=== PATIENT | female | born 1955 | race Caucasian/White ===

== ENCOUNTER → 2023-10-10 14:20 | Outpatient (REF) | payer OTHER, SELFPAY | LOC: HWWDC 14:20 | PROVIDERS: ATTENDING PHYSICIAN Nurse Practitioner Adult Health | DX: Z12.31 Encounter for screening mammogram for malignant neoplasm of breast (principal) | CPT/HCPCS: 77063; 77067 ==

== ENCOUNTER → 2023-10-18 10:20 | Outpatient (REF) | payer OTHER, SELFPAY | LOC: WDC 10:20 | PROVIDERS: ATTENDING PHYSICIAN Nurse Practitioner Adult Health | DX: R92.8 Other abnormal and inconclusive findings on diagnostic imaging of breast (principal) | CPT/HCPCS: 76642 ==

== ENCOUNTER → 2023-11-06 10:23 | Outpatient (REF) | payer OTHER, SELFPAY | LOC: HWRAD 10:23 | PROVIDERS: ATTENDING PHYSICIAN Physician Assistant; FAMILY PHYSICIAN Nurse Practitioner Adult Health | DX: M54.50 Low back pain, unspecified (principal) | CPT/HCPCS: 72110 ==

== ENCOUNTER → 2024-02-29 08:37 | Outpatient (REF) | payer OTHER, SELFPAY ==
[2024-02-29 12:41] LABS: APTT 28.1 Sec (23.4-35.0); INR 1.01; PT 13.1 Sec (11.4-14.6)
[2024-02-29 12:57] LABS: Glycohemoglobin (HgbA1c) 5.8 % (4.0-5.6)
[2024-02-29 13:04] LABS: ALT (SGPT) 29 U/L (0-35); AST (SGOT) 32 U/L (14-36); Albumin 4.4 g/dl (3.5-5.0); Alkaline Phosphatase 71 U/L (38-126); Blood Urea Nitrogen 29 mg/dl (7-17); Calcium 9.7 mg/dl (8.4-10.2); Carbon Dioxide 27 mmol/L (22-30); Chloride 103 mmol/L (98-107); Direct Bilirubin 0.4 mg/dl (0.0-0.4); GGTP < 10 U/L (12-43); Glucose 116 mg/dl (70-99); Potassium 3.8 mmol/L (3.5-5.1); Sodium 141 mmol/L (135-145); Total Bilirubin 0.6 mg/dl (0.2-1.3); Total Protein 7.1 g/dl (6.3-8.2); eGFR > 60.00
[2024-02-29 13:16] LABS: Hepatitis B Surface Antigen Negative (Negative)
[2024-02-29 13:21] LABS: Ferritin 89.8 ng/ml (11.1-264.0)
[2024-02-29 13:34] LABS: Hepatitis B Surface Antibody Negative; Hepatitis C Antibody Negative (Negative)
[2024-02-29 14:21] LABS: Hepatitis A Antibody, Total Negative (Negative)
[2024-02-29 15:08] LABS: Hepatitis B Core Ab, IgM Negative (Negative)
[2024-03-02 23:20] LABS: Alpha-1-Antitrypsin 152 mg/dL (90-200)
[2024-03-02 23:21] LABS: IgA 253 mg/dl (70-400); IgG 1105 mg/dl (700-1600); IgM 53 mg/dl (40-230)
[2024-03-03 07:41] LABS: F-Actin Antibody IgG 11 Units (0-19)
== END ==
LOC: HWLAB 08:37
PROVIDERS: ATTENDING PHYSICIAN Nurse Practitioner Adult Health
DX: I10 Essential (primary) hypertension (principal); R73.09 Other abnormal glucose; K76.0 Fatty (change of) liver, not elsewhere classified; R79.89 Other specified abnormal findings of blood chemistry
CPT/HCPCS: 36415; 80053; 81256; 82103; 82248; 82728; 82784; 82977; 83036; 83516; 85610; 85730; 86015; 86705; 86706; 86708; 86803; 87340

== ENCOUNTER 2024-04-07 01:41 | Inpatient (IN) | payer OTHER, SELFPAY ==
[2024-04-06 22:32] VITALS: BP 169/89; BMI 30.1
[2024-04-06 22:51] LABS: % Basophils 0.4 % (0-2); % Eosinophils 6.5 % (0-6); % Immature Granulocytes 0.3 % (0-0.5); % Lymphocytes 21.5 % (20.5-51.1); % Monocytes 2.2 % (1.7-9.3); % Neutrophils 69.1 % (42.2-75.2); Absolute Eosinophils 0.6 10^3/uL (0-0.7); Absolute Monocytes 0.2 10^3/uL (0.1-0.6); Absolute Neutrophils 6.6 10^3/uL (1.4-6.5); Hematocrit 35.1 % (37.0-47.0); Hemoglobin 12.4 g/dL (12.0-16.0); Mean Corp Hgb Conc. 35.3 g/dL (33.0-37.0); Mean Corpuscular Hgb 30.3 pg (27.0-31.0); Mean Corpuscular Volume 85.8 fL (81.0-99.0); Mean Platelet Volume 9.3 fL (7.4-10.4); Nucleated Red Blood Cells % 0 %; Platelet Count 234 10^3/uL (130-400); Red Blood Cell Count 4.09 10^6/uL (4.20-5.40); Red Cell Dist. Width 12.3 % (11.5-14.5); White Blood Cell Count 9.5 10^3/uL (4.8-10.8)
[2024-04-06 23:04] LABS: ALT (SGPT) 28 U/L (0-35); AST (SGOT) 37 U/L (14-36); Albumin 4.5 g/dl (3.5-5.0); Alkaline Phosphatase 65 U/L (38-126); Blood Urea Nitrogen 29 mg/dl (7-17); Calcium 10.1 mg/dl (8.4-10.2); Carbon Dioxide 24 mmol/L (22-30); Chloride 104 mmol/L (98-107); Estimated Creatinine Clearance 45 ml/min; Glucose 132 mg/dl (70-99); Lipase 58 U/L (23-300); Sodium 137 mmol/L (135-145); Total Bilirubin 0.4 mg/dl (0.2-1.3); Total Protein 7.1 g/dl (6.3-8.2); eGFR > 60.00
--- NOTE | 2024-04-06 23:24 | ED.GENMED ---
History of Present Illness
<JACI Segovia - Last Filed: 04/07/24 00:58>
General
Chief Complaint: Flank Pain
Source: patient
Exam Limitations: none
Time Seen by Provider: 04/06/24 23:11
History of Present Illness
History of Present Illness:
This is a 69 year old female that comes in with multiple complaints. States that she was fine all day and then all or a sudden she started with pain in the right lower back, into her leg and groin. States that she also has upper abd pain, nausea and
vomiting. Patient has the chills at this time and states that she was dizzy. Denies any fever, chest pain, SOB, diarrhea, headache, urinary burning.
Past History
<JACI Segovia - Last Filed: 04/07/24 00:58>
Past History
ED Past Medical History: HTN and Other (Renal calculus, )
ED Past Surgical History: Orthopedic (Left hip replacement) and Urological (Renal stents and then removal)
Social History
Tobacco: Non-smoker
Alcohol: Occasional
Personal:
Living: with family
Review of Systems
<JACI Segovia - Last Filed: 04/07/24 00:58>
Review of Systems
All Other Systems: ROS reviewed and negative except as documented in HPI and ROS
Constitutional: Reports chills; Denies fever
EENT: Reports no symptoms
Respiratory: Reports no symptoms; Denies cough or trouble breathing
Cardiac: Denies chest pain
ABD/GI: Reports abdominal pain, nausea and vomiting; Denies diarrhea
: Reports no symptoms; Denies dysuria, frequency or urgency
Musculoskeletal: Reports no symptoms
Skin: Reports no symptoms
Neurological: Reports dizzy; Denies headache
Psychiatric: Reports no symptoms
Phy Exam
<JACI Segovia - Last Filed: 04/07/24 00:58>
General Physical Exam
General Presentation: mild distress
General age: appears stated age
General Skin: warm and dry
General Habitus: elderly
General Mental: alert
General Hydration: appears well hydrated
ENT Exam
ENT Exam: TM's normal, pharynx normal and neck supple
Eye Exam
Eye Exam: EOMI
Cardiovascular Exam
Cardiovascular Exam: regular rate/rhythm, no edema, no murmur and normal peripheral pulses
Pulmonary Exam
Pulmonary Exam: lungs clear, no respiratory distress, no rales, chest non tender, no crackles, no rhonchi, no wheezing and no cough
Gastrointestinal Exam
Gastrointestinal Exam: normal bowel sounds, soft, no organomegaly, no pulsatile mass, non distended and tender (Epigastric tenderness with palpation)
Musculoskeletal Exam
Musculoskeletal Exam: full ROM and no edema
Skin Exam
Skin Exam: normal color, warm/dry, no rash and no petechia
Psychiatric Exam
Psychiatric Exam: normal mood/affect
Course
<JACI Segovia - Last Filed: 04/07/24 00:58>
Orders/Labs/Results
Orders:
Orders
04/06/24 22:45
Complete Blood Count/With Diff Urgent
Comprehensive Metabolic Panel Urgent
Lipase Urgent
04/06/24 23:22
HYDROmorphone [Dilaudid] 1 mg IV NOW STA
Ondansetron Injectable [Zofran] 4 mg IV NOW STA
Pantoprazole [Protonix IV] 40 mg IV NOW STA
04/06/24 23:23
Electrocardiogram (*1) Urgent
Reason for Study: Abdominal Pain
EKG- Treatment ONCE
Urinalysis Reflex To Culture Urgent
04/06/24 23:24
0.9% Sodium Chloride 1000 ml [Nss] 1,000 ml IV BOLUS
04/06/24 23:39
Sterile Water [Sterile Water For Injection] 10 ml .ROUTE .STK-MED ONE
04/06/24 23:54
Troponin I Urgent
04/06/24 23:59
Lactic Acid Urgent
Blood Culture Urgent
ANNETTE Source: Blood/Venous
Specimen Description:
Acetaminophen 1000MG/100Ml [Ofirmev] 1,000 mg in 100 ml .ROUTE .STK-MED
Acetaminophen 1000MG/100Ml [Ofirmev] 1,000 mg in 100 ml IV ONCE
Acetaminophen IV Indication:: ED Narcotic Naive Pt-ONCE
04/07/24 00:00
CT Abd/pel Without Iv Or Oral Urgent
Reason For Exam: Right back flank pain.
04/07/24 00:16
Piperacillin/Tazo 3.375 Gram [Zosyn] 3.375 gram in 50 ml IV NOW
04/07/24 00:54
Consult Urology [UROLOGY CONSULT] Urgent
Consulting Provider: Alfonso Kendrick
Was physician already notified: Yes
Abnormal Lab Results
04/06/24 04/07/24
22:45 00:25
RBC 4.09 L 10^6/uL
(4.20-5.40)
Hct 35.1 L %
(37.0-47.0)
Absolute Neuts (auto) 6.6 H 10^3/uL
(1.4-6.5)
Eosinophils % 6.5 H %
(0-6)
BUN 29 H mg/dl
(7-17)
Glucose 132 H mg/dl
(70-99)
Lactic Acid 2.5 H mmol/L
(0.7-2.0)
AST 37 H U/L
(14-36)
04/06/24 22:45
04/06/24 22:45
Dehydration, Glucose nonfasting., Lipase normal at 58
Vital Signs
Initial and Last Documented VS:
Initial Vital Signs
Temp Pulse Resp BP Pulse Ox
97.8 F 78 16 169/89 99
04/06/24 22:32 04/06/24 22:32 04/06/24 22:32 04/06/24 22:32 04/06/24 22:32
Last Documented Vital Signs
Temp Pulse Resp BP Pulse Ox
103 F H 123 17 131/65 96
04/07/24 00:40 04/07/24 01:00 04/07/24 01:00 04/07/24 01:00 04/07/24 01:00
Maximilianolt;Panfilo Nails DO - Last Filed: 04/07/24 01:09>
Orders/Labs/Results
Orders:
Orders
04/06/24 22:45
Complete Blood Count/With Diff Urgent
Comprehensive Metabolic Panel Urgent
Lipase Urgent
04/06/24 23:22
HYDROmorphone [Dilaudid] 1 mg IV NOW STA
Ondansetron Injectable [Zofran] 4 mg IV NOW STA
Pantoprazole [Protonix IV] 40 mg IV NOW STA
04/06/24 23:23
Electrocardiogram (*1) Urgent
Reason for Study: Abdominal Pain
EKG- Treatment ONCE
Urinalysis Reflex To Culture Urgent
04/06/24 23:24
0.9% Sodium Chloride 1000 ml [Nss] 1,000 ml IV BOLUS
04/06/24 23:39
Sterile Water [Sterile Water For Injection] 10 ml .ROUTE .STK-MED ONE
04/06/24 23:54
Troponin I Urgent
04/06/24 23:59
Lactic Acid Urgent
Blood Culture Urgent
ANNETTE Source: Blood/Venous
Specimen Description:
Acetaminophen 1000MG/100Ml [Ofirmev] 1,000 mg in 100 ml .ROUTE .STK-MED
Acetaminophen 1000MG/100Ml [Ofirmev] 1,000 mg in 100 ml IV ONCE
Acetaminophen IV Indication:: ED Narcotic Naive Pt-ONCE
04/07/24 00:00
CT Abd/pel Without Iv Or Oral Urgent
Reason For Exam: Right back flank pain.
04/07/24 00:16
Piperacillin/Tazo 3.375 Gram [Zosyn] 3.375 gram in 50 ml IV NOW
04/07/24 00:54
Consult Urology [UROLOGY CONSULT] Urgent
Consulting Provider: Alfonso Kendrick
Was physician already notified: Yes
Abnormal Lab Results
04/06/24 04/07/24
22:45 00:25
RBC 4.09 L 10^6/uL
(4.20-5.40)
Hct 35.1 L %
(37.0-47.0)
Absolute Neuts (auto) 6.6 H 10^3/uL
(1.4-6.5)
Eosinophils % 6.5 H %
(0-6)
BUN 29 H mg/dl
(7-17)
Glucose 132 H mg/dl
(70-99)
Lactic Acid 2.5 H mmol/L
(0.7-2.0)
AST 37 H U/L
(14-36)
04/06/24 22:45
04/06/24 22:45
Vital Signs
Initial and Last Documented VS:
Initial Vital Signs
Temp Pulse Resp BP Pulse Ox
97.8 F 78 16 169/89 99
04/06/24 22:32 04/06/24 22:32 04/06/24 22:32 04/06/24 22:32 04/06/24 22:32
Last Documented Vital Signs
Temp Pulse Resp BP Pulse Ox
103 F H 123 17 131/65 96
04/07/24 00:40 04/07/24 01:00 04/07/24 01:00 04/07/24 01:00 04/07/24 01:00
<JACI Segovia - Last Filed: 04/07/24 00:58>
MDM/Problems Addressed
Differential Diagnosis Includes:
renal calculus, UTI,
MDM/Problems Addressed:
This is a 69 year old female that comes in with c/o epigastric pain. States that she also has right sided back pain that is in her groin and leg. States that this came on all of a sudden.
Will medicate for pain. Blood work CT scan.
Chronic conditions affecting care:
History of Renal calculus
Acute Exacerbation and/or Progression of Chronic Illness:
Renal calculus,
<JACI Segovia - Last Filed: 04/07/24 00:58>
*Radiology
Radiology exam reviewed: radiology read reviewed (CT-10mm stone within the proximal left ureter, which results in mild to moderate left hydroureteronephrosis. No bowel obstruction. Normal gallbladder and appendix. ), all reviewed NAD by ED Provider
(CT cont- Incidentals: Diverticulitis without evidence of diverticulitis. Moderate stool burden. Small hiatal hernia. No obstructive uropathy. Left pelvic sidewall hypodense lesion measuring up to 6.6 X 3.9cm, present ovarian cyst. Consider further
outpatient workup. No hepatic or pancreatic mass.) and other (CT cont-No acute osseous abnormality. No acute abnormality within the visualized lungs. No acute abnormality within the the visualized soft tissues. )
*Pulse Oximetry
Patient hypoxic: no
*EKG
Interpreted by ED Provider?: Yes
Heart Rate: 126
Rhythm: sinus tachycardia
Freer: normal axis
Interval: normal interval
QRS Pattern: normal QRS
Ischemia: non-specific ST changes
*Document Reviewer Interpretation
Rate: tachycardiac
Heart Rate: 126
Rhythm: sinus tachycardia
*Critical Care Note
Total Time (30-74mins, 75-104mins- exclusive of procedures): 30 min
<Panfilo Nails DO - Last Filed: 04/07/24 01:09>
*EKG
Rate: tachycardiac
*Document Reviewer Interpretation
Interpretation: abnormal
ED Attending Note
<JACI Segovia - Last Filed: 04/07/24 00:58>
-
Portions of this chart may have been created with voice recognition software.� Occasional wrong word or��sound alike� substitutions may have occurred due to the inherent limitations of voice recognition software.
<Panfilo Nails DO - Last Filed: 04/07/24 01:09>
ED Attending Note
Patient seen and examined by attending physician: Yes
I performed a history and physical exam of patient and discussed management with resident, I reviewed resident's note and agree with documented findings and plan of care.: Yes
ED Attending Note:
Seen nurse practitioner examined independently, agree with assessment plan 69-year-old female hypertension distant history of ureteral stone requiring stenting in 2004, acute onset of flank pain fever chills
CT scan report noted labs are noted cultures are pending
Urology has been consulted,
Discharge Plan
Departure
Patient Disposition: Admit
Date of Disposition: 04/07/24
Time of Disposition: 00:54
Admit to: OR
Presentation/result/management discussed w/ accepting MD/DO: Hospitalist
Patient with high blood pressure during this ER visit?: Yes
Condition: Good
Covid-19: Not Applicable
Discharge Problem:
Sepsis, Renal calculus, left
Interventions
Interventions:
*Risk Screen - Suicide Last Done: 04/06/24 22:32
*General Assessment Last Done: 04/06/24 23:45
*Neglect/Abuse Screening Last Done: 04/06/24 22:32
*ED COVID-19 Vaccine History Last Done: 04/06/24 23:45
[facility] Assessment Last Done: 04/06/24 23:45
ED-Female Genitourinary Assessment Last Done: 04/06/24 23:45
Discharge Date and Time
Print Language: POLISH
[2024-04-06] MEDS: ZOFRAN 4 MG IV (23:48)
[2024-04-06] MEDS: NSS 1000 IV (23:48)
[2024-04-06] MEDS: DILAUDID 1 MG IV (23:49)
[2024-04-06 23:54] VITALS: BP 162/96
[2024-04-07] VITALS (33 sets, daily range): BP systolic 95–146; BP diastolic 53–74; PULSE 82–85; BMI 31.2
[2024-04-07] MEDS: OFIRMEV 100 IV (00:01)
[2024-04-07 00:30] LABS: Troponin I < 0.012 ng/ml
[2024-04-07] MEDS: ZOSYN 50 IV (00:33)
[2024-04-07] MEDS: PROTONIX IV 40 MG IV (00:36)
[2024-04-07 00:54] LABS: Lactic Acid 2.5 mmol/L (0.7-2.0)
--- NOTE | 2024-04-07 01:32 | HPS.HSE ---
Family Physician
-
Family Physician: Day Juarez
Chief Complaint
-
L Flank pain, N/V
History of Present Illness
Patient is a 69y F with PMH significant for hypertension, obesity and prior kidney stones who presents to ED complaining of sudden onset of L flank pain and N/V this evening. Patient states that she had been feeling well until this evening while
she was eating dinner. She developed onset of L flank pain, shaking chills, nausea with multiple episodes of non-bloody emesis. Patient complains of general malaise. She has history of similar episodes in the past due to kidney stones - most
recently in 2004 at [facility]. Patient presented to the ED for further evaluation where she is noted to be febrile to [address] scan showing L proximal ureteral stone.
Medical History
Past Medical History
Past Medical History: Reports Other
Additional Past Medical History:
Hypertension
Obesity
GERD
Spinal Stenosis
DJD
Nephrolithiasis
Colon Polyp
Vitreous Detachment
Past Surgical History: Reports Other
Additional Past Surgical History:
Left DESTINEY (poorly rehabbed / healed)
Ureteroscopy / Lithotripsy
Social History
Tobacco: Non-smoker
Alcohol: Daily (1 glass wine daily.)
Drug: None
Personal:
Living: With Family
Family History
Family History: Not pertinent
Allergies / Home Medications
Allergies reflects when Allergies were last updated in [facility].
Home Medications with original date entered in [facility]
Allergy/Medication List:
Allergies
Allergy/AdvReac Type Severity Reaction Status Date / Time
latex Allergy Rash Verified 04/07/24 01:11
levofloxacin Allergy Rash Verified 04/06/24 22:31
lisinopril Allergy Rash Verified 04/06/24 22:31
Home Medications
acetaminophen 500 mg tablet 500 mg PO DAILY 04/07/24
alendronate 70 mg tablet (Fosamax) 70 mg PO QWEEK 04/07/24
cetirizine 10 mg tablet (Zyrtec) 10 mg PO DAILY 04/07/24
cholecalciferol (vitamin D3) 125 mcg (5,000 unit) tablet (Vitamin D3) 125 mcg PO DAILY 04/07/24
cyanocobalamin (vitamin B-12) 1,000 mcg tablet 1,000 mcg PO DAILY 04/07/24
meloxicam 15 mg tablet 15 mg PO DAILY 04/07/24
metoprolol succinate 100 mg tablet,extended release 24 hr (Toprol XL) 100 mg PO DAILY 04/07/24
olmesartan 40 mg-hydrochlorothiazide 12.5 mg tablet 1 tab PO DAILY 04/07/24
rosuvastatin 10 mg tablet 10 mg PO DAILY 04/07/24
Review of Systems
-
History Source: Patient
A 12 point ROS was completed and negative except as noted: Yes
Constitutional: Reports Fever, Fatigue and Chills
EENT: Denies Sore Throat
Respiratory: Denies Cough or Trouble Breathing
Cardiac: Denies Chest Pain or Palpitations
Abdomen/GI: Reports Nausea and Vomiting; Denies Abdominal Pain, Diarrhea, Constipated, Bloody Stools or Black Stools
: Reports Flank Pain; Denies Dysuria, Frequency, Incontinence or Bleeding
Musculoskeletal: Reports Joint Pain (Chronic L hip pain.); Denies Edema
Neurological: Denies Dizzy or Headache
Psych: Denies Depression or Anxiety
Physical Exam
Vital Signs
Vital Signs
Temp Pulse Resp BP Pulse Ox
101.3 F H 124 18 131/65 95
04/07/24 01:27 04/07/24 01:27 04/07/24 01:27 04/07/24 01:00 04/07/24 01:27
Physical Exam
General: Other (69y F in mild distress due to pain.)
HEENT: Moist mucous membranes and PERRLA
Respiratory: Clear; No Wheezes, Rales or Rhonchi
Cardiac: S1/S2 and Tachycardia; No Murmur
GI: Soft, Non Tender, Non Distended and Normal Bowel Sounds
Genito-urinary: Other (Pos L CVAT.)
Musculoskeletal: No Clubbing, No Cyanosis and No Edema
Neuro: AO x 3
Laboratory Results
-
04/06/24 22:45
04/06/24 22:45
Laboratory Results
Lactic Acid 2.5 mmol/L (0.7-2.0) H 04/07/24 00:25
Total Bilirubin 0.4 mg/dl (0.2-1.3) 04/06/24 22:45
AST 37 U/L (14-36) H 04/06/24 22:45
ALT 28 U/L (0-35) 04/06/24 22:45
Alkaline Phosphatase 65 U/L (38-126) 04/06/24 22:45
Troponin I < 0.012 ng/ml 04/06/24 23:54
Lipase 58 U/L (23-300) 04/06/24 22:45
Impression/Plan
-
A/P: Patient is a 69y F with PMH significant for HTN, DJD and prior nephrolithiasis who presents to ED complaining of L flank pain and N/V.
Left Ureterolithiasis with Moderate Hydronephrosis
Obstructive Uropathy secondary to the above
UTI / Sepsis secondary to the above
- Patient being taken emergently from the ED to the OR for ureteroscopy and probable stent placement.
- Admit to IMU post-op.
- Patient presents with fever, tachycardia, tachypnea and leukocytosis with evidence of obstructive uropathy / UTI.
- Continue IV abx, IVFs, supportive care with pain control, antiemetics, etc.
- Flomax daily.
- Follow for clinical improvement.
- Follow-up culture data and adjust abx as needed.
Benign Hypertension
- BP stable at present.
- Continue metoprolol and Benicar for now with holding parameters to avoid hypotension.
- Hold HCTZ acutely.
DJD
Chronic L Hip Pain
- Patient with chronic L hip discomfort s/p prior DESTINEY and difficult rehab / post-op course.
- Continue pain control.
- PT / OT evaluations.
Obesity due to excess calories
- Affects all aspects of care.
- Encourage healthy diet and increase activity as able with goal of weight loss.
DVT Prophylaxis: SCDs
Code Status: Full
[2024-04-07 01:53] LABS: Urine Albumin Negative (Neg - Trace); Urine Bilirubin Negative (Negative); Urine Character Slightly Cloudy (Clear); Urine Color Yellow; Urine Glucose Negative (Negative); Urine Ketone Negative (Negative); Urine Leukocyte 1+ (Negative); Urine Nitrite Negative (Negative); Urine Occult Blood Trace (Negative); Urine Urobilinogen Negative (Neg - 1+); Urine pH 6.5 (5.0-9.0)
--- NOTE | 2024-04-07 02:01 | W.PN.URO.CBU ---
Today's Communication / Plan
-
Have discussed the need for urgent urologic intervention with cystoscopy and attempt at left JJ stent placement with patient and family in an effort to help manage her acute illness
Risk of ureteral or bladder injury were noted along with the potential need for left PCN if stent cannot be placed
Patient provides written and verbal consent
Assessment / Plan
-
Probable urosepsis secondary to UTI and an obstructing left proximal ureteral stone
Diagnosis
-
Date of Service: April 07, 2024
-
Patient Diagnosis:
Partially obstructing 1 cm left proximal ureteral stone
Probable urosepsis
Fever/chills
---
Patient has a history of nephrolithiasis
She underwent ESWL with Dr. Wallace 2004
Subjective
-
Feels poorly
Fatigued
c/o continued left flank pain
Objective
-
Vital Signs
Temp Pulse Resp BP Pulse Ox
101.3 F H 128 23 131/65 96
04/07/24 01:27 04/07/24 01:30 04/07/24 01:30 04/07/24 01:00 04/07/24 01:30
Intake and Output
04/05/24 04/06/24 04/07/24
06:59 06:59 06:59
Output Total 175 / 175
Balance -175 / -175
Output:
Urine, Voided 175 / 175
Laboratory Results
04/06/24 22:45
04/06/24 22:45
CT scan reveales a large left proximal ureteral stone with hydronephrosis and perinephric standing. There is a smaller left lower pole stone
Review of Systems
-
Constitutional: Fever, Fatigue and Chills
Respiratory: No Symptoms
Cardiac: No Symptoms
Abdomen/GI: Abdominal Pain
: No Symptoms
Neurological: No Symptoms
Physical Exam
-
General - ill appearing
Abdomen - left flank pain
Skin - warm to the touch
Counseling
-
Urgent cystoscopy with left JJ stent placement
[2024-04-07 02:15] LABS: Urine Bacteria Many (Negative); Urine Squamous Cell >30 /LPF (Few)
[2024-04-07 02:16] LABS: Urine White Cell 60-70 /HPF (0-5)
--- NOTE | 2024-04-07 02:24 | W.IMMPOSTOP ---
Surgical Immed Post Op Note
-
Primary Surgeon: Mireille
Assisting Surgeon: None
Pre-op Diagnosis: Left proximal ureteral stone, probable urosepsis
Post-op Diagnosis: Same
Procedure Performed: Cystoscopy with placement left JJ stent (4.7 Fr 22 cm)
Anesthesia Type: GET
Specimen / Cultures: Urine culture after JJ stent placement
Estimated Blood Loss: None
Complications: None
Operative Findings: mucopurulent debris released from left ureter upon stent placement
[2024-04-07] MEDS: DILAUDID 0.5 MG IV (02:44)
--- NOTE | 2024-04-07 03:14 | SUR.PHASEI ---
0316: Pt. finished PACU in recovery with JUNIOR LEGAL SECRETARY and OUTSIDE PARTS SALESMAN in patient room 3359, pt. was safely transported on monitor from PACU to ICU room to finish recovery. Pt. awoke from sedation with baseline neuro exam intact c/o flank pain. Pt. was
medicated per NOV for 04/19 pain. Pt. was tachycardic and fluids were left running wide open that were started by anaesthesia intra-op. RN to RN report given to ICU nurse Sophia
[2024-04-07] MEDS: NSS 1000 IV ×3 (03:30→21:36)
[2024-04-07] MEDS: TORADOL 15 MG IV ×2 (03:38→18:33)
--- NOTE | 2024-04-07 04:46 | PTCARENOTE ---
Went to PACU at approx 0245 to help transport pt to ICU with COLOR BUFFER (pt is IMU level of care). Pt is s/p cystoscopy with left ureteral stent placement. Arrived to room 3359 with patient at 0256. Pt drowsy but easily arousable to voice, A/O x4, able
to move all extremities, able to follow commands. Pt on 4LNC with SpO2 97-98%. ST 120s on monitor. Berry catheter draining light yellow urine. See nursing shift assessment flowsheet for further physical assessment details. Medicated for pain to left
hip with IV Toradol, IVF started as well, see MAR for details. Pt's , sister, and daughter in room visiting for about an hour and then left to go home. Admission database completed. Call causey and personal belongings within reach.
[2024-04-07 04:48] LABS: Hematocrit 32.6 % (37.0-47.0); Hemoglobin 11.1 g/dL (12.0-16.0); Mean Corpuscular Hgb 30.7 pg (27.0-31.0); Mean Corpuscular Volume 90.3 fL (81.0-99.0); Mean Platelet Volume 9.5 fL (7.4-10.4); Platelet Count 137 10^3/uL (130-400); Red Blood Cell Count 3.61 10^6/uL (4.20-5.40); Red Cell Dist. Width 12.4 % (11.5-14.5); White Blood Cell Count 6.5 10^3/uL (4.8-10.8)
[2024-04-07 05:19] LABS: Blood Urea Nitrogen 25 mg/dl (7-17); Calcium 8.2 mg/dl (8.4-10.2); Carbon Dioxide 23 mmol/L (22-30); Chloride 106 mmol/L (98-107); Estimated Creatinine Clearance 46 ml/min; Glucose 162 mg/dl (70-99); Potassium 3.5 mmol/L (3.5-5.1); Sodium 136 mmol/L (135-145); eGFR > 60.00
[2024-04-07] MEDS: ROCEPHIN 1000 MG IV (05:50)
[2024-04-07] MEDS: STERILE WATER FOR INJECTION 10 ML IV (05:51)
[2024-04-07] MEDS: TOPROL XL 25 MG PO (09:00)
[2024-04-07] MEDS: FLOMAX 0.4 MG PO (09:00)
--- NOTE | 2024-04-07 09:08 | PTOTSP ---
Received order for PT and reviewed chart. Noted therapy orders were written prior to pt going to OR. Will need updated PT/OT order when stable to begin activity.
--- NOTE | 2024-04-07 09:54 | W.PN.HOSP.TC ---
Today's Communication/Plan
-
see bold
Assessment / Plan
Assessment / Plan
HPI: 69y F with PMH significant for HTN, DJD and prior nephrolithiasis who presents to ED complaining of L flank pain and N/V.
Left Ureterolithiasis with Moderate Hydronephrosis
Obstructive Uropathy secondary to the above
UTI / Sepsis secondary to the above
- Appreciate urology input, status post cystoscopy with left ureteral stent placement on 04/07
- Continue IV antibiotics, follow-up on cultures
Reproducible substernal chest pain with left arm heaviness
-Chest pain is reproducible, she states it is different from her reflux pain
-She is also complaining of left arm heaviness
-Check troponin, check EKG, consult cardiology
Benign Hypertension
- BP stable at present.
- Continue metoprolol with hold parameters
- Hold Benicar/HCTZ acutely.
DJD
Chronic L Hip Pain
- Patient with chronic L hip discomfort s/p prior DESTINEY and difficult rehab / post-op course.
- Continue pain control.
- PT / OT evaluations.
Obesity due to excess calories
- Affects all aspects of care.
- Encourage healthy diet and increase activity as able with goal of weight loss.
DVT Prophylaxis: SQ lovenox
Code Status: Full
Physical Exam
General: Obese, no acute distress
HEENT: Normocephalic, Atraumatic, EOMI, MMM
Respiratory: Clear to Auscultation bilaterally
Cardiac: Normal S1/S2, Regular Rate and Rhythm
GI: Soft, Nontender, Nondistended, Normal Bowel Sounds
Extremities: No Clubbing, Cyanosis, or Edema
Neuro: Nonfocal/Grossly Intact
Psych: Calm, Cooperative
Derm: No Visible lesions
Anticipated Discharge: > 48 hours
Subjective/Interval History
-
Date of Service: April 07, 2024
Patient complains of reproducible musculoskeletal chest pain and left arm heaviness.
Objective Data
-
Labs:
Laboratory Results
04/06/24 04/07/24
22:45 04:27
WBC 9.5 6.5
Hgb 12.4 11.1 L
Hct 35.1 L 32.6 L
Plt Count 234 137 D
Sodium 137 136
Potassium 4.0 3.5
Chloride 104 106
Carbon Dioxide 24 23
BUN 29 H 25 H
Creatinine 1.0 1.0
Glucose 132 H 162 H
Calcium 10.1 8.2 L D
Total Bilirubin 0.4
AST 37 H
ALT 28
Alkaline Phosphatase 65
Vital Signs:
Vital Signs
Temp Pulse Resp BP Pulse Ox
98.4 F 97 21 100/53 94
04/07/24 07:58 04/07/24 09:00 04/07/24 08:30 04/07/24 09:00 04/07/24 08:30
I&O
04/06/24 04/07/24 04/08/24
06:59 06:59 06:59
Intake Total 1600 / 1600 100 / 100
Output Total 900 / 900 250 / 250
Balance 700 / 700 -150 / -150
[2024-04-07] MEDS: TYLENOL 650 MG PO ×2 (10:07→21:29)
--- NOTE | 2024-04-07 10:29 | PTCARENOTE ---
Patient laying comfortably in bed, voiding via cordova, RN updated patient and patient daughter on plan of care. MD Kendrick stopped by and spoke to pt and pt family. Staff is still straining urine per order. Plan is to have stone removed in three
weeks, per surgeon
--- NOTE | 2024-04-07 10:42 | W.PN.URO.CBU ---
Today's Communication / Plan
-
Keep Berry
Await culture results
Assessment / Plan
-
Probable urosepsis secondary to UTI and an obstructing left proximal ureteral stone
s/p urgent left JJ stent 04/07/24
Diagnosis
-
Date of Service: April 07, 2024
-
Patient Diagnosis:
Partially obstructing 1 cm left proximal ureteral stone
Probable urosepsis
Fever/chills
s/p urgent left JJ stent placement 04/07/24
---
Patient has a history of nephrolithiasis
She underwent ESWL with Dr. Wallace 2004
Subjective
-
No left flank pain
Fatigued
Objective
-
Vital Signs
Temp Pulse Resp BP Pulse Ox
98.4 F 97 21 100/53 94
04/07/24 07:58 04/07/24 09:00 04/07/24 08:30 04/07/24 09:00 04/07/24 08:30
Intake and Output
04/06/24 04/07/24 04/08/24
06:59 06:59 06:59
Intake Total 1600 / 1600 100 / 100
Output Total 900 / 900 250 / 250
Balance 700 / 700 -150 / -150
Intake:
IV fluids (Total) 1600 / 1600 100 / 100
Normosol 1300 / 1300
Nss 1,000 ml @ 100 mls/hr IV . 300 / 300 100 / 100
Q10H KIERRA Rx#:[id number]
Output:
Urine, Berry 725 / 725 250 / 250
Urine, Voided 175 / 175
Laboratory Results
04/07/24 04:27
04/07/24 04:27
Review of Systems
-
Constitutional: Fatigue
Respiratory: No Symptoms
Cardiac: No Symptoms
Abdomen/GI: No Symptoms
Neurological: No Symptoms
Physical Exam
-
General - no acute distress
Abdomen - soft, non-tender
Genitalia - normal with Berry draining clear urine
Counseling
-
Keep Berry
Antibiotics per Hospitalists
--- NOTE | 2024-04-07 13:33 | CM ---
CM following re: discharge planning.
Reviewed pt' chart, met with pt and pt's sister Shanti at bedside.
Pt is a 69 year old female, admitted with primary dx of s/p urgent left JJ stent placement 04/07/24.
Pt reports she lives with and a daughter in a 2SH, 3 steps to enter, has 2 supportive children. Pt described herself as independent in all areas [employer]. No DME, VN or SNF history.
PCP: Day Juarez
Pharmacy: [facility].
D/C plan: home with anticipated no needs. family to transport at discharge.
CM will follow with discharge plan updates as hospitalization progresses.
--- NOTE | 2024-04-07 13:36 | PTCARENOTE ---
Patient out of bed to chair for lunch. Diet order called in. Pt blood pressures remain 100's/50's- HR in the 80's. No fever. Tylenol given for headache.
--- NOTE | 2024-04-07 15:53 | PTCARENOTE ---
Patient endorsing mid sternal/chest pain and left arm heaviness. She feels it is musculoskeletal pain due to throwing up yesterday. RN messaged hospitalist and performed EKG which shows NSR. Orders for troponin and cardiology consult placed. Vital
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
--- NOTE | 2024-04-07 16:12 | CON.CAR ---
Addendum entered and electronically signed by Ariana Regan MD 04/07/24 18:30:
I saw and examined the patient.
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
Comment: 69 y/o female with hypertension, dyslipidemia, obesity, GERD, osteoporosis, hip replacement who is here for left flank pain found to have urosepsis secondary to UTI and an obstructing left proximal ureteral stone and is s/p urgent left JJ
stent . With presentation she had extensive n/v. She has had epigastric pain since the vomiting. Currently still presents and she can touch it to make it worse. ON exam she has exquisite tenderness at epigastrum and xyphoid process
otherwise cta, abd soft and rrr. I suspect an MSK etiology of cp due to n/v. Trop is normal x 2 and she had ecg showing NSR. Low probability of cardiac etiology. No further work up is needed.
Original Note:
Consultation
Consultation Request
Date/Time Consultation Requested: 04/07/24 1529
Date/Time Consultation Performed: 04/07/24 1550
Requesting Provider: Dr. Mera
Performing Provider: Talya BEATTY for Dr. Regan
Reason for Consultation: chest discomfort
Medical History
-
Chief Complaint: left flank pain
History of Present Illness:
69 y/o female with hypertension, dyslipidemia, obesity, GERD, osteoporosis, hip replacement who is here for left flank pain. She has had fever/chills. She also had nausea and vomiting. Since then, she has had epigastric discomfort that feels like
pressure. Her left arm feels heavy (of note, she has a history of left shoulder injury when she had her hip replacement in the past). The pain has been present since this AM. It is worse to palpation. It is not worse with inspiration or movement.
Troponin on arrival was normal and repeat is pending. EKG that was just done is normal. She is admitted with probable urosepsis secondary to UTI and an obstructing left proximal ureteral stone and is s/p urgent left JJ stent 04/07/24. Her flank pain
has resolved. She is on antibiotics. We are consulted for chest discomfort. She is in no distress at the time of my assessment and is hemodynamically stable.
Past Medical History
Past Medical History: GERD, HTN, Hypercholesterolemia and Other (as above)
Social History
Tobacco: Former Smoker (remote)
Alcohol: Daily (1 glass wine daily)
Personal:
Living: With Family
Family History
Family History: CAD (dad IN 60, sister IN 40's)
Allergies / Home Medications
Allergy/AdvReac Type Severity Reaction Status Date / Time
latex Allergy Rash Verified 04/07/24 01:11
levofloxacin Allergy Rash Verified 04/06/24 22:31
lisinopril Allergy Rash Verified 04/06/24 22:31
�Medication �Instructions �Recorded �Confirmed �Type
acetaminophen 500 mg tablet 500 mg PO DAILY 04/07/24 04/07/24 History
alendronate 70 mg tablet (Fosamax) 70 mg PO QWEEK 04/07/24 04/07/24 History
cetirizine 10 mg tablet (Zyrtec) 10 mg PO DAILY 04/07/24 04/07/24 History
cholecalciferol (vitamin D3) 125 125 mcg PO DAILY 04/07/24 04/07/24 History
mcg (5,000 unit) tablet (Vitamin
D3)
cyanocobalamin (vitamin B-12) 1,000 mcg PO DAILY 04/07/24 04/07/24 History
1,000 mcg tablet
meloxicam 15 mg tablet 15 mg PO DAILY 04/07/24 04/07/24 History
metoprolol succinate 100 mg 100 mg PO DAILY 04/07/24 04/07/24 History
tablet,extended release 24 hr
(Toprol XL)
olmesartan 40 1 tab PO DAILY 04/07/24 04/07/24 History
mg-hydrochlorothiazide 12.5 mg
tablet
rosuvastatin 10 mg tablet 10 mg PO DAILY 04/07/24 04/07/24 History
Review of Systems
-
History Source: Patient
All other systems: Negative unless noted
Constitutional: Fever and Chills
Cardiac: Chest Pain
Abdomen/GI: Nausea, Vomiting and Other (flank pain)
Neurological: Other (arm heaviness)
Physical Exam
Vital Signs
Temp Pulse Resp BP Pulse Ox
98.1 F 74 15 107/57 97
04/07/24 15:00 04/07/24 14:30 04/07/24 14:30 04/07/24 14:00 04/07/24 14:30
Lab Results
04/07/24 04:27
04/07/24 04:27
Troponin I < 0.012 ng/ml 04/06/24 23:54
Physical Exam
General: Well Developed, Well Nourished and No Apparent Distress
HEENT: Normocephalic and Anicteric
Respiratory: Clear, Non Labored Respirations and Other (on O2 by NC)
Cardiac: Regular Rhythm
Musculoskeletal: No Edema
Skin: Warm and Dry
Neuro: AO x 3
Psych: Calm
Impression / Plan
-
Sepsis secondary to UTI and an obstructing left proximal ureteral stone:
-s/p urgent left JJ stent 04/07/24
-on antibiotics and IVF
-urology following
Chest discomfort:
-patient has had constant epigastric discomfort since this AM. She is in no distress. It is worse to palpation. Possibly non-cardiac cause with trauma from vomiting- GI, msk source?
-updated EKG is completely normal. First trop is normal, updated trop is pending.
HTN:
-on low end
-monitor
HLD:
-on statin
Obesity:
-long-term would benefit from weight loss
Data Reviewed
-
EKG: Tracing Personally Visualized and interpreted (EKG NSR)
CT Scan: Report Reviewed by me (Moderate left hydronephrosis and surrounding perinephric inflammation secondary to an obstructing 9.3 mm calculus in the proximal ureter. No perinephric fluid collection. A few punctate nonobstructing left renal
calculi with the largest in the lower pole measuring up to 2.5 mm. Left ovarian cyst)
Medical Tests (Nuc Med, Echo etc): Other (echo ordered by me)
Labs: Labs Reviewed by me
[2024-04-07 16:49] LABS: Troponin I < 0.012 ng/ml
[2024-04-07] MEDS: LOVENOX 40 MG SC (18:33)
--- NOTE | 2024-04-07 20:30 | PTCARENOTE ---
Resumed care of pt laying in bed AAOx3, Pt reports having a headache and generalized body aches. PRN Tylenol administered as ordered. HR in the 70's in NSR on the monitor. POX 93% on RA. Lungs clear. + bowel, round abd. Berry cath in place draining
yellow urine. Palpable peripheral pulses present. Right hand int infusing NSS@75ml/hr as ordered. Left AC int capped. Pt resting in bed per comfort. Call causey in reach. Will continue to monitor.
[2024-04-08] VITALS (14 sets, daily range): BP systolic 110–162; BP diastolic 63–131; PULSE 66–94; BMI 32.8; BMI 31.2
[2024-04-08] MEDS: TORADOL 15 MG IV ×3 (00:34→20:39)
[2024-04-08] MEDS: TYLENOL 650 MG PO ×2 (05:36→13:04)
[2024-04-08] MEDS: ZOFRAN 4 MG IV ×3 (05:36→20:39)
[2024-04-08] MEDS: STERILE WATER FOR INJECTION 10 ML IV (05:36)
[2024-04-08] MEDS: ROCEPHIN 1000 MG IV (05:36)
[2024-04-08 06:09] LABS: Hematocrit 32.2 % (37.0-47.0); Hemoglobin 11.1 g/dL (12.0-16.0); Mean Corp Hgb Conc. 34.5 g/dL (33.0-37.0); Mean Corpuscular Hgb 31.5 pg (27.0-31.0); Mean Corpuscular Volume 91.5 fL (81.0-99.0); Mean Platelet Volume 10.4 fL (7.4-10.4); Platelet Count 129 10^3/uL (130-400); Red Blood Cell Count 3.52 10^6/uL (4.20-5.40); Red Cell Dist. Width 13.2 % (11.5-14.5); White Blood Cell Count 22.8 10^3/uL (4.8-10.8)
[2024-04-08 06:12] LABS: Blood Urea Nitrogen 31 mg/dl (7-17); Calcium 7.8 mg/dl (8.4-10.2); Carbon Dioxide 21 mmol/L (22-30); Chloride 111 mmol/L (98-107); Estimated Creatinine Clearance 46 ml/min; Glucose 117 mg/dl (70-99); Magnesium 1.6 mg/dl (1.6-2.3); Potassium 3.8 mmol/L (3.5-5.1); Sodium 140 mmol/L (135-145); eGFR > 60.00
--- NOTE | 2024-04-08 06:41 | PTCARENOTE ---
Pt awake most of the night. Pt having trouble sleeping. pt reports generalized body aches, headache, and left hip pain. Pt also reports feeling nauseous. PRN medications administered as ordered. Pt had episode of having some tremors, temp checked,
temp WNL. Pt reports just feeling tired. Blankets provided. Will continue to monitor..
[2024-04-08] MEDS: FLOMAX 0.4 MG PO (08:10)
[2024-04-08] MEDS: TOPROL XL 25 MG PO (08:10)
--- NOTE | 2024-04-08 08:29 | PTCARENOTE ---
Orange Text to hospitalist about patient's night- only 150ml dark vasiliy urine in [place] all night, WBC on am lab work now 22, pt tremulous when ambulating and told RN she feels weaker. Pt's is afebrile and all other VS are stable. IV toradol given for
pain per order
--- NOTE | 2024-04-08 08:40 | W.PN.HOSP.TC ---
Today's Communication/Plan
-
Stable for telemetry
Assessment / Plan
Assessment / Plan
HPI: 69y F with PMH significant for HTN, DJD and prior nephrolithiasis who presents to ED complaining of L flank pain and N/V.
Left Ureterolithiasis with Moderate Hydronephrosis
Obstructive Uropathy secondary to the above
UTI
Klebsiella bacteremia
Sepsis secondary to the above
- Appreciate urology input, status post cystoscopy with left ureteral stent placement on 04/07
- Continue IV antibiotics, follow-up on cultures
- Repeat blood cultures to document clearance
Reproducible substernal chest pain with left arm heaviness
-Chest pain is reproducible, she states it is different from her reflux pain
-She is also complaining of left arm heaviness
-Appreciate cardiology input, reproducible chest pain due to vomiting
Benign Hypertension
- BP stable at present.
- Continue metoprolol and benicar with hold parameters
- Hold HCTZ acutely.
DJD
Chronic L Hip Pain
- Patient with chronic L hip discomfort s/p prior DESTINEY and difficult rehab / post-op course.
- Continue pain control.
- PT / OT evaluations.
Obesity due to excess calories
- Affects all aspects of care.
- Encourage healthy diet and increase activity as able with goal of weight loss.
DVT Prophylaxis: SQ lovenox
Code Status: Full
Total time spent to see the patient on the floor, examine the patient, review data and lab results, discuss treatment plan with patient, nursing staff around 51 minutes.
Physical Exam
General: Obese, no acute distress
HEENT: Normocephalic, Atraumatic, EOMI, MMM
Respiratory: Clear to Auscultation bilaterally
Cardiac: Normal S1/S2, Regular Rate and Rhythm
GI: Soft, Nontender, Nondistended, Normal Bowel Sounds
Extremities: No Clubbing, Cyanosis, or Edema
Neuro: Nonfocal/Grossly Intact
Psych: Calm, Cooperative
Derm: No Visible lesions
Anticipated Discharge: 24 - 48 hours
Subjective/Interval History
-
Date of Service: April 08, 2024
Patient reports diffuse myalgias, feeling tired and fatigued overall. Fever resolved.
Objective Data
-
Labs:
Laboratory Results
04/08/24
05:33
WBC 22.8 H
Hgb 11.1 L
Hct 32.2 L
Plt Count 129 L
Sodium 140
Potassium 3.8
Chloride 111 H
Carbon Dioxide 21 L
BUN 31 H
Creatinine 1.0
Glucose 117 H
Calcium 7.8 L
Vital Signs:
Vital Signs
Temp Pulse Resp BP Pulse Ox
98.3 F 68 23 138/65 93
04/08/24 07:52 04/08/24 08:10 04/08/24 08:04 04/08/24 08:10 04/08/24 08:08
I&O
04/07/24 04/08/24 04/09/24
06:59 06:59 06:59
Intake Total 1600 / 1600 2105 / 2105
Output Total 900 / 900 1000 / 1000
Balance 700 / 700 1105 / 1105
--- NOTE | 2024-04-08 09:12 | PTOTSP ---
Received order for PT from the ED 04/07 and reviewed chart. Noted therapy orders were written prior to pt going to OR. Will need updated PT/OT order when stable to begin activity, if mobility is an issue.
[2024-04-08] MEDS: NSS 1000 IV ×2 (11:12→20:39)
--- NOTE | 2024-04-08 11:17 | W.PN.URO.CBU ---
Today's Communication / Plan
-
Keep Berry
Follow culture/sensitivities
Will need definitive stone surgery in 4-6 weeks
Assessment / Plan
-
Probable urosepsis secondary to UTI and an obstructing left proximal ureteral stone: Klebsiella in blood
s/p urgent left JJ stent 04/07/24
Diagnosis
-
Date of Service: April 08, 2024
-
Patient Diagnosis:
Partially obstructing 1 cm left proximal ureteral stone
Probable urosepsis
Fever/chills
s/p urgent left JJ stent placement 04/07/24
---
Patient has a history of nephrolithiasis
She underwent ESWL with Dr. Wallace 2004
Subjective
-
Fatigued
Chills again overnight
Objective
-
Vital Signs
Temp Pulse Resp BP Pulse Ox
98.3 F 56 14 144/71 94
04/08/24 07:52 04/08/24 10:00 04/08/24 10:00 04/08/24 10:00 04/08/24 10:00
Intake and Output
04/07/24 04/08/24 04/09/24
06:59 06:59 06:59
Intake Total 1600 / 1600 2105 / 2105 525 / 525
Output Total 900 / 900 1000 / 1000 100 / 100
Balance 700 / 700 1105 / 1105 425 / 425
Intake:
Oral fluids 480 / 480 0 / 0
IV fluids (Total) 1600 / 1600 1625 / 1625 525 / 525
Normosol 1300 / 1300
Nss 1,000 ml @ 100 mls/hr IV . 300 / 300 1625 / 1625 525 / 525
Q10H KIERRA Rx#:[id number]
Output:
Urine, Berry 725 / 725 1000 / 1000 100 / 100
Urine, Voided 175 / 175
Laboratory Results
04/08/24 05:33
04/08/24 05:33
Review of Systems
-
Constitutional: Fatigue
Respiratory: No Symptoms
Cardiac: No Symptoms
Abdomen/GI: No Symptoms
Neurological: No Symptoms
Physical Exam
-
General - no acute distress
Abdomen - soft, non-tender
Genitalia - normal with Berry draining vasiliy urine with residual sediment
--- NOTE | 2024-04-08 14:54 | PTCARENOTE ---
Patient continues on IVF per order, urine culture still pending, MD Kendrick and Do saw patient. RN updated patient's daughter and on plan of care, daughter was at bedside for MD Kendrick rounds this am.
--- NOTE | 2024-04-08 15:59 | PTCARENOTE ---
Gave report to Kate receiving RN
[2024-04-08] MEDS: BENICAR 40 MG PO (16:58)
--- NOTE | 2024-04-08 17:16 | PTCARENOTE ---
Received pt in transfer from ICU via bed, accompanied by volunteer. pt AAO x3, IVERSON; able to transfer to bed with minimal assistance. VSS. Placed on telemetry:NSR. On nc 2 lpm- pulse ox 93%, no c/o SOB. Abd obeses, soft, pt on reg diet. Berry
P/I small amts vasiliy sl cloudy urine. Temp 98 PO. IVF's NSS@ 100 ml/hr infusing via Lt AC site without sx of infiltration. oriented to 4East, currently restin gin bed. Will continue to monitor.
[2024-04-08] MEDS: LOVENOX 40 MG SC (17:56)
[2024-04-09] VITALS (7 sets, daily range): BP systolic 125–165; BP diastolic 64–87; PULSE 71–99
--- NOTE | 2024-04-09 05:13 | PTCARENOTE ---
Pt awake t/o the night. pt with frequent loose stools. Pt continues to feel lousy and inability to sleep. Vital signs stable. IVF infusing as ordered. Will continue to monitor.
[2024-04-09] MEDS: ROCEPHIN 1000 MG IV ×2 (05:56→09:18)
[2024-04-09] MEDS: STERILE WATER FOR INJECTION 10 ML IV ×2 (05:56→09:18)
[2024-04-09] MEDS: NSS 1000 IV ×2 (06:34→17:19)
--- NOTE | 2024-04-09 09:01 | W.PN.HOSP.TC ---
Addendum entered and electronically signed by Julio César Mera MD 04/09/24 16:15:
Patient also having diarrhea, C. difficile negative. Likely antibiotic associated diarrhea.
Start probiotic.
Original Note:
Today's Communication/Plan
-
See bold
Assessment / Plan
Assessment / Plan
HPI: 69y F with PMH significant for HTN, DJD and prior nephrolithiasis who presents to ED complaining of L flank pain and N/V.
Left Ureterolithiasis with Moderate Hydronephrosis
Obstructive Uropathy secondary to the above
UTI
Klebsiella bacteremia
Sepsis secondary to the above
- Appreciate urology input, status post cystoscopy with left ureteral stent placement on 04/07
- Blood and urine cultures growing Klebsiella, sensitivities reviewed
- Rocephin increased to 2 g IV every 24 hours, follow-up blood cultures to document clearance
Reproducible substernal chest pain with left arm heaviness
-Chest pain is reproducible, she states it is different from her reflux pain
-She is also complaining of left arm heaviness
-Appreciate cardiology input, reproducible chest pain due to vomiting
Benign Hypertension
- BP stable at present.
- Continue metoprolol and benicar with hold parameters
- Hold HCTZ acutely.
DJD
Chronic L Hip Pain
- Patient with chronic L hip discomfort s/p prior DESTINEY and difficult rehab / post-op course.
- Continue pain control.
- PT / OT evaluations.
Insomnia
-Start melatonin and Benadryl at bedtime
Hypokalemia
-Replete, magnesium normal
Obesity due to excess calories
- Affects all aspects of care.
- Encourage healthy diet and increase activity as able with goal of weight loss.
DVT Prophylaxis: SQ lovenox
Code Status: Full
Total time spent to see the patient on the floor, examine the patient, review data and lab results, discuss treatment plan with patient, nursing staff around 50 minutes.
Physical Exam
General: Obese, no acute distress
HEENT: Normocephalic, Atraumatic, EOMI, MMM
Respiratory: Clear to Auscultation bilaterally
Cardiac: Normal S1/S2, Regular Rate and Rhythm
GI: Soft, Nontender, Nondistended, Normal Bowel Sounds
Extremities: No Clubbing, Cyanosis, or Edema
Neuro: Nonfocal/Grossly Intact
Psych: Calm, Cooperative
Derm: No Visible lesions
Anticipated Discharge: 24 - 48 hours
Subjective/Interval History
-
Date of Service: April 09, 2024
Patient reports feeling tired for not having slept since Sunday. Continues to have left flank discomfort. Chills improved. No fever, no vomiting.
Objective Data
-
Labs:
Laboratory Results
04/09/24
08:40
WBC Pending
Hgb Pending
Hct Pending
Plt Count Pending
Sodium Pending
Potassium Pending
Chloride Pending
Carbon Dioxide Pending
BUN Pending
Creatinine Pending
Glucose Pending
Calcium Pending
Vital Signs:
Vital Signs
Temp Pulse Resp BP Pulse Ox
98.9 F 77 18 147/78 96
04/09/24 07:43 04/09/24 07:43 04/09/24 07:43 04/09/24 07:43 04/09/24 09:01
I&O
04/08/24 04/09/24 04/10/24
06:59 06:59 06:59
Intake Total 2105 / 2105 2840 / 2840
Output Total 1000 / 1000 1050 / 1050
Balance 1105 / 1105 1790 / 1790
[2024-04-09] MEDS: FLOMAX 0.4 MG PO (09:11)
[2024-04-09 09:12] LABS: Hematocrit 28.5 % (37.0-47.0); Hemoglobin 9.9 g/dL (12.0-16.0); Mean Corp Hgb Conc. 34.7 g/dL (33.0-37.0); Mean Corpuscular Hgb 30.5 pg (27.0-31.0); Mean Corpuscular Volume 87.7 fL (81.0-99.0); Mean Platelet Volume 10.4 fL (7.4-10.4); Platelet Count 137 10^3/uL (130-400); Red Blood Cell Count 3.25 10^6/uL (4.20-5.40); Red Cell Dist. Width 12.6 % (11.5-14.5); White Blood Cell Count 18.3 10^3/uL (4.8-10.8)
[2024-04-09] MEDS: BENICAR 40 MG PO (09:12)
[2024-04-09] MEDS: TOPROL XL 25 MG PO (09:12)
--- NOTE | 2024-04-09 09:15 | W.PN.URO.CBU ---
Today's Communication / Plan
-
Stool for C. diff
Antibiotics to be tailored to sensitivities
Assessment / Plan
-
Probable urosepsis secondary to UTI and an obstructing left proximal ureteral stone: Klebsiella in blood and urine
s/p urgent left JJ stent 04/07/24
Diarrhea: C. difficile?
Diagnosis
-
Date of Service: April 09, 2024
-
Patient Diagnosis:
Partially obstructing 1 cm left proximal ureteral stone
Probable urosepsis: Klebsiella in blood and urine
Fever/chills
s/p urgent left JJ stent placement 04/07/24
---
Patient has a history of nephrolithiasis
She underwent ESWL with Dr. Wallace 2004
Subjective
-
c/o GI issues: diarrhea and reflux
No left flank pain
Objective
-
Vital Signs
Temp Pulse Resp BP Pulse Ox
98.9 F 77 18 147/78 96
04/09/24 07:43 04/09/24 09:12 04/09/24 07:43 04/09/24 09:12 04/09/24 09:01
Intake and Output
04/08/24 04/09/24 04/10/24
06:59 06:59 06:59
Intake Total 2105 / 2105 2840 / 2840
Output Total 1000 / 1000 1050 / 1050
Balance 1105 / 1105 1790 / 1790
Intake:
Oral fluids 480 / 480 340 / 340
IV fluids (Total) 1625 / 1625 2500 / 2500
Nss 1,000 ml @ 100 mls/hr IV . 1625 / 1625 1200 / 1200
Q10H KIERRA Rx#:[id number]
Output:
Urine, Berry 1000 / 1000 1050 / 1050
Other:
Number of unmeasured liquid
stools
Rectum 2
Laboratory Results
04/09/24 08:40
Review of Systems
-
Constitutional: Fatigue
Respiratory: No Symptoms
Cardiac: No Symptoms
Abdomen/GI: Diarrhea and Pain
Neurological: No Symptoms
Physical Exam
-
General - ill-appearing, no acute distress
Abdomen - soft, non-tender
Genitalia - normal with Berry draining clear urine
Skin - warm & dry with no rash
Neuro - AOx3, no motor deficits
Extremities - no clubbing, no cyanosis, no edema
Incision - clean, dry
Dressing - clean, dry, intact
Counseling
-
Check stool for C. diff
[2024-04-09] MEDS: ZOFRAN 4 MG IV (09:18)
[2024-04-09] MEDS: FLUSH (NSS) 1 FLUSH IV ×2 (09:19→17:20)
[2024-04-09] MEDS: PROTONIX 40 MG PO (10:08)
[2024-04-09 10:12] LABS: Blood Urea Nitrogen 22 mg/dl (7-17); Calcium 7.4 mg/dl (8.4-10.2); Carbon Dioxide 20 mmol/L (22-30); Chloride 111 mmol/L (98-107); Estimated Creatinine Clearance 65 ml/min; Glucose 85 mg/dl (70-99); Potassium 3.2 mmol/L (3.5-5.1); Sodium 137 mmol/L (135-145); eGFR > 60.00
[2024-04-09 11:37] LABS: Magnesium 1.6 mg/dl (1.6-2.3)
[2024-04-09] MEDS: KCL 40 MEQ PO ×2 (11:55→17:19)
[2024-04-09] MEDS: TUMS EX (EXTRA STRENGTH) CHEWABLE 2 TABLET PO (14:48)
--- NOTE | 2024-04-09 16:38 | PTCARENOTE ---
Pt AAO x3, IVERSON; OOB to BR with assist x1/walker, yesica well, tires easily. VSS. On room air- pulse ox 94%, pt with (+) slight PATEL. Abd large, soft, pt c/o abd 'feels full/bloated'; also c/o occ 'indigestion'; Tums given with good effect. Appetite
poor; taking only small amts clear liquids. Pt c/o 'loose BM's'; to start probiotic; C-dif (-). Berry P/I large amts clear yellow urine. Resting in bed at present; family at bedside. Will continue to monitor.
[2024-04-09] MEDS: LOVENOX 40 MG SC (17:19)
[2024-04-09] MEDS: VISBIOME 2 CAP PO (17:19)
[2024-04-09] MEDS: MELATONIN 5 MG PO (20:32)
[2024-04-10] MEDS: NSS 1000 IV (05:28)
[2024-04-10] MEDS: TYLENOL 650 MG PO (06:01)
[2024-04-10 07:50] VITALS: BP 146/76; BP 152/80; BP 157/83; PULSE 76; PULSE 78; PULSE 82
[2024-04-10 08:23] LABS: Hematocrit 27.8 % (37.0-47.0); Hemoglobin 9.8 g/dL (12.0-16.0); Mean Corp Hgb Conc. 35.3 g/dL (33.0-37.0); Mean Corpuscular Hgb 30.9 pg (27.0-31.0); Mean Corpuscular Volume 87.7 fL (81.0-99.0); Mean Platelet Volume 10.1 fL (7.4-10.4); Platelet Count 160 10^3/uL (130-400); Red Blood Cell Count 3.17 10^6/uL (4.20-5.40); Red Cell Dist. Width 12.3 % (11.5-14.5); White Blood Cell Count 13.9 10^3/uL (4.8-10.8)
--- NOTE | 2024-04-10 08:43 | W.PN.HOSP.TC ---
Addendum entered and electronically signed by Julio César Mera MD 04/10/24 15:51:
Hypophosphatemia
-Replete, recheck a.m. labs
Original Note:
Today's Communication/Plan
-
see bold
Assessment / Plan
Assessment / Plan
HPI: 69y F with PMH significant for HTN, DJD and prior nephrolithiasis who presents to ED complaining of L flank pain and N/V.
Left Ureterolithiasis with Moderate Hydronephrosis
Obstructive Uropathy secondary to the above
UTI
Klebsiella bacteremia
Sepsis secondary to the above
- Appreciate urology input, status post cystoscopy with left ureteral stent placement on 04/07
- Blood and urine cultures growing Klebsiella, sensitivities reviewed
- Currently on Rocephin 2 g IV every 24 hours, change to Bactrim to complete a 14-day course
- Berry to be removed today
GERD
-Continue PPI, Pepcid, Tums/Maalox as needed
Reproducible substernal chest pain with left arm heaviness
-Chest pain is reproducible, she states it is different from her reflux pain
-She is also complaining of left arm heaviness
-Appreciate cardiology input, reproducible chest pain due to vomiting
Benign Hypertension
- BP stable at present.
- Continue metoprolol and benicar with hold parameters
- Resume HCTZ
DJD
Chronic L Hip Pain
- Patient with chronic L hip discomfort s/p prior DESTINEY and difficult rehab / post-op course.
- Continue pain control.
- PT / OT - rec HH.
Insomnia
-Started melatonin and Benadryl at bedtime
Hypokalemia
-Repleted and resolved
Obesity due to excess calories
- Affects all aspects of care.
- Encourage healthy diet and increase activity as able with goal of weight loss.
DVT Prophylaxis: SQ lovenox
Code Status: Full
Total time spent to see the patient on the floor, examine the patient, review data and lab results, discuss treatment plan with patient, nursing staff around 55 minutes.
Physical Exam
General: Obese, no acute distress
HEENT: Normocephalic, Atraumatic, EOMI, MMM
Respiratory: Clear to Auscultation bilaterally
Cardiac: Normal S1/S2, Regular Rate and Rhythm
GI: Soft, Nontender, Nondistended, Normal Bowel Sounds
Extremities: No Clubbing, Cyanosis, or Edema
Neuro: Nonfocal/Grossly Intact
Psych: Calm, Cooperative
Derm: No Visible lesions
Anticipated Discharge: 24 - 48 hours
Subjective/Interval History
-
Date of Service: April 10, 2024
Patient complains of reflux, indigestion, belching. Fever/chills resolved.
Objective Data
-
Labs:
Laboratory Results
04/10/24
07:38
WBC 13.9 H
Hgb 9.8 L
Hct 27.8 L
Plt Count 160
Sodium Pending
Potassium Pending
Chloride Pending
Carbon Dioxide Pending
BUN Pending
Creatinine Pending
Glucose Pending
Calcium Pending
Vital Signs:
Vital Signs
Temp Pulse Resp BP Pulse Ox
98 F 76 18 157/83 97
04/10/24 07:50 04/10/24 07:50 04/10/24 07:50 04/10/24 07:50 04/10/24 07:50
I&O
04/09/24 04/10/24 04/11/24
06:59 06:59 06:59
Intake Total 2840 / 2840 2610 / 2610
Output Total 1050 / 1050 2215 / 2215
Balance 1790 / 1790 395 / 395
[2024-04-10 08:55] LABS: Blood Urea Nitrogen 13 mg/dl (7-17); Calcium 7.9 mg/dl (8.4-10.2); Carbon Dioxide 22 mmol/L (22-30); Chloride 111 mmol/L (98-107); Estimated Creatinine Clearance 65 ml/min; Glucose 80 mg/dl (70-99); Magnesium 1.7 mg/dl (1.6-2.3); Phosphorus 2.3 mg/dl (2.5-4.5); Potassium 3.8 mmol/L (3.5-5.1); Sodium 138 mmol/L (135-145); eGFR > 60.00
[2024-04-10] MEDS: BENICAR 40 MG PO (09:39)
[2024-04-10] MEDS: FLOMAX 0.4 MG PO (09:40)
[2024-04-10] MEDS: TOPROL XL 25 MG PO (09:40)
[2024-04-10] MEDS: PROTONIX 40 MG PO (09:40)
[2024-04-10] MEDS: TUMS EX (EXTRA STRENGTH) CHEWABLE 2 TABLET PO ×3 (09:43→23:58)
[2024-04-10] MEDS: VISBIOME 2 CAP PO (09:44)
[2024-04-10] MEDS: ROCEPHIN 2000 MG IV (10:37)
[2024-04-10] MEDS: STERILE WATER FOR INJECTION 20 ML IV (10:38)
--- NOTE | 2024-04-10 11:11 | CM ---
Patient seen resting beside, daughter present. Daughter reports patient is not on home O2. Patient remains on Iv antibiotics. CM will continue to follow for all discharge planning needs.
Plan; home no needs likely, watch O2 needs.
--- NOTE | 2024-04-10 11:13 | W.PN.URO.CBU ---
Today's Communication / Plan
-
Berry out today
Assessment / Plan
-
Probable urosepsis secondary to UTI and an obstructing left proximal ureteral stone: Klebsiella in blood and urine
s/p urgent left JJ stent 04/07/24
Diarrhea: resolving
Diagnosis
-
Date of Service: April 10, 2024
-
Patient Diagnosis:
Partially obstructing 1 cm left proximal ureteral stone
Probable urosepsis: Klebsiella in blood and urine
Fever/chills: resolving
s/p urgent left JJ stent placement 04/07/24
---
Patient has a history of nephrolithiasis
She underwent ESWL with Dr. Wallace 2004
Subjective
-
Feeling better
Diarrhea resolving
Objective
-
Vital Signs
Temp Pulse Resp BP Pulse Ox
98 F 76 18 157/83 97
04/10/24 07:50 04/10/24 09:40 04/10/24 07:50 04/10/24 09:40 04/10/24 07:50
Intake and Output
04/09/24 04/10/24 04/11/24
06:59 06:59 06:59
Intake Total 2840 / 2840 2610 / 2610
Output Total 1050 / 1050 2215 / 2215
Balance 1790 / 1790 395 / 395
Intake:
Oral fluids 340 / 340 360 / 360
IV fluids (Total) 2500 / 2500 2250 / 2250
Nss 1,000 ml @ 100 mls/hr IV . 1200 / 1200
Q10H KIERRA Rx#:[id number]
Output:
Liquid stool amount 15 / 15
Rectum 15 / 15
Urine, Berry 1050 / 1050 2200 / 2200
Other:
Number of unmeasured liquid
stools
Rectum 2 1
Laboratory Results
04/10/24 07:38
04/10/24 07:38
Review of Systems
-
Constitutional: Fatigue
Respiratory: No Symptoms
Cardiac: No Symptoms
Abdomen/GI: No Symptoms
Neurological: No Symptoms
Physical Exam
-
General - well nourished, no acute distress
Abdomen - soft, non-tender
Genitalia - normal with Berry draining clear urine
Counseling
-
Will perform definitive stone surgery as an outpatient
[2024-04-10 12:00] VITALS: BP 133/70; PULSE 100; PULSE 75; O2SAT 89
[2024-04-10 12:01] VITALS: BP 133/70; PULSE 77; O2SAT 93
[2024-04-10 14:24] VITALS: BMI 30.9
[2024-04-10 15:22] VITALS: BP 153/75
--- NOTE | 2024-04-10 15:52 | W.PN.HOSP.TC ---
Today's Communication/Plan
-
see bold
Assessment / Plan
Assessment / Plan
HPI: 69y F with PMH significant for HTN, DJD and prior nephrolithiasis who presents to ED complaining of L flank pain and N/V.
Left Ureterolithiasis with Moderate Hydronephrosis
Obstructive Uropathy secondary to the above
UTI
Klebsiella bacteremia
Sepsis secondary to the above
- Appreciate urology input, status post cystoscopy with left ureteral stent placement on 04/07, Berry removed 04/10
- Blood and urine cultures growing Klebsiella, sensitivities reviewed. Repeat blood cultures negative to date
- Status post IV Rocephin, currently on Bactrim to complete a 14-day course
- Needs to follow-up with urology in the office in 2 weeks for definitive stone management
- PT rec HH
Severe epigastric abdominal pain, bloating, belching
Probable gastritis
GERD
-Continue PPI, Pepcid, Tums/Maalox as needed, consult GI
Hypophosphatemia
-Repleted and resolved
Reproducible substernal chest pain with left arm heaviness
-Chest pain is reproducible, she states it is different from her reflux pain
-She is also complaining of left arm heaviness
-Appreciate cardiology input, reproducible chest pain due to vomiting
Benign Hypertension
- BP stable at present.
- Continue metoprolol and benicar with hold parameters
- Holding hydrochlorothiazide while getting Lasix
DJD
Chronic L Hip Pain
- Patient with chronic L hip discomfort s/p prior DESTINEY and difficult rehab / post-op course.
- Continue pain control.
- PT / OT - rec HH.
Insomnia
-Started melatonin and Benadryl at bedtime
Hypokalemia
-Repleted and resolved
Obesity due to excess calories
- Affects all aspects of care.
- Encourage healthy diet and increase activity as able with goal of weight loss.
DVT Prophylaxis: SQ lovenox
Code Status: Full
Updated daughter at bedside 04/11
Total time spent to see the patient on the floor, examine the patient, review data and lab results, discuss treatment plan with patient, nursing staff around 52 minutes.
Physical Exam
General: Obese, no acute distress
HEENT: Normocephalic, Atraumatic, EOMI, MMM
Respiratory: Clear to Auscultation bilaterally
Cardiac: Normal S1/S2, Regular Rate and Rhythm
GI: Soft, Nontender, Nondistended, Normal Bowel Sounds
Extremities: No Clubbing, Cyanosis, or Edema
Neuro: Nonfocal/Grossly Intact
Psych: Calm, Cooperative
Derm: No Visible lesions
Anticipated Discharge: 24 - 48 hours
Subjective/Interval History
-
Date of Service: April 10, 2024
Patient complains of severe pain in her epigastrium, belching, bloating. She also feels really full in her face and abdomen. No fever, no vomiting.
Objective Data
-
Labs:
Laboratory Results
04/10/24
07:38
WBC 13.9 H
Hgb 9.8 L
Hct 27.8 L
Plt Count 160
Sodium 138
Potassium 3.8
Chloride 111 H
Carbon Dioxide 22
BUN 13
Creatinine 0.7
Glucose 80
Calcium 7.9 L
Vital Signs:
Vital Signs
Temp Pulse Resp BP Pulse Ox
97.4 F 70 18 153/75 96
04/10/24 15:22 04/10/24 15:22 04/10/24 15:22 04/10/24 15:22 04/10/24 15:22
I&O
04/09/24 04/10/24 04/11/24
06:59 06:59 06:59
Intake Total 2840 / 2840 2610 / 2610
Output Total 1050 / 1050 2215 / 2215
Balance 1790 / 1790 395 / 395
[2024-04-10] MEDS: PEPCID 20 MG PO (17:12)
[2024-04-10] MEDS: ORETIC 25 MG PO (17:13)
[2024-04-10] MEDS: LOVENOX 40 MG SC (17:14)
[2024-04-10] MEDS: NEUTRA-PHOS POWDER PACKET 500 MG PO ×2 (17:23→22:49)
[2024-04-10 19:37] VITALS: BP 147/77; BP 149/75; BP 153/81; PULSE 76; PULSE 82; PULSE 84
[2024-04-10] MEDS: BACTRIM DS 800 MG/160 MG 1 TABLET PO (20:21)
[2024-04-10] MEDS: MELATONIN 5 MG PO (22:53)
[2024-04-10 23:00] VITALS: BP 118/70
--- NOTE | 2024-04-11 04:27 | PTCARENOTE ---
Pt aaox3 able to make her needs known,anxious at times.Pt c/o abdominal bloating at times, pt had 2 loose BM later & felt better after that. Pt voiding clear yellow urine. Pt provided with prn tums as needed, refuses maalox. PATHOLOGY TECHNOLOGIST sales contracts analyst made aware
of pt complaints. No new orders at this time.Plan of care continued.
[2024-04-11 06:00] VITALS: BMI 30.1
[2024-04-11 08:14] VITALS: BP 153/77
[2024-04-11] MEDS: BENICAR 40 MG PO (08:16)
[2024-04-11] MEDS: FLOMAX 0.4 MG PO (08:16)
[2024-04-11] MEDS: ORETIC 25 MG PO (08:16)
[2024-04-11] MEDS: PROTONIX 40 MG PO (08:16)
[2024-04-11] MEDS: PEPCID 20 MG PO (08:17)
[2024-04-11] MEDS: VISBIOME 2 CAP PO (08:17)
[2024-04-11] MEDS: TOPROL XL 25 MG PO (08:17)
[2024-04-11] MEDS: BACTRIM DS 800 MG/160 MG 1 TABLET PO ×2 (08:17→21:48)
[2024-04-11 09:15] LABS: Hematocrit 32.4 % (37.0-47.0); Hemoglobin 11.6 g/dL (12.0-16.0); Mean Corp Hgb Conc. 35.8 g/dL (33.0-37.0); Mean Corpuscular Hgb 30.1 pg (27.0-31.0); Mean Corpuscular Volume 84.2 fL (81.0-99.0); Mean Platelet Volume 9.6 fL (7.4-10.4); Platelet Count 220 10^3/uL (130-400); Red Blood Cell Count 3.85 10^6/uL (4.20-5.40); Red Cell Dist. Width 12.2 % (11.5-14.5); White Blood Cell Count 9.5 10^3/uL (4.8-10.8)
[2024-04-11 09:32] LABS: Blood Urea Nitrogen 10 mg/dl (7-17); Calcium 9.1 mg/dl (8.4-10.2); Carbon Dioxide 23 mmol/L (22-30); Chloride 104 mmol/L (98-107); Estimated Creatinine Clearance 56 ml/min; Glucose 100 mg/dl (70-99); Potassium 3.7 mmol/L (3.5-5.1); Sodium 138 mmol/L (135-145); eGFR > 60.00
--- NOTE | 2024-04-11 10:36 | CON.GI ---
Addendum entered and electronically signed by Krys Harrison MD 04/11/24 18:50:
I saw and examined the patient.
The SPINNING MACHINE TENDER or PA's note was reviewed and I agree with the note.
Comment: 69 yo F pmh as below presenting to admitted with flank pain, nausea, fever, vomiting. She has been seen by urology and found to have urosepsis with stent placed. Klebsiella both and blood in urine. She had some diarrhea which has
resolved. However, she is complaining of ongoing epigastric pain, nausea and bloating. She is on meloxicam daily for the last 4 years for osteoarthritis. Her hemoglobin is 11.6 with normal BUN. Abdominal x-ray was unremarkable. This could
simply be from her urosepsis. She could also have gastroparesis in the setting of infection. With her NSAID use she could have peptic ulcer disease.
At this time, will increase Protonix to twice a day. Will add on Reglan 5 mg every 6 hours. Will hold Zofran. Will add on Gas-X as needed.
If patient tolerates clears and continues to feel better, can advance to a low fiber, low-fat, small frequent meals tomorrow.
Original Note:
Consultation
-
Date/Time Consultation Requested: 04/11/24 1000
Date/Time Consultation Performed: 04/11/24 1030
Requesting Provider: Julio César Mera MD
Performing Provider: JACI Mcgraw, Dinorah Harrison MD
Reason for Consultation: gastritis
Medical History
Chief Complaint / HPI
Chief Complaint: bloating/belching
History of Present Illness:
Pt is a 69yo with hx HTN, obesity, renal stone with ER presentation 04/07 with flank pain, nausea, chills, fever, and emesis with concern for sepsis /klebsiella bacteremia with UTI with obstructing proximal ureteral stone with stent placement 04/07.
She continued with epigastric tenderness with eval by cardiology with low probability of cardiac etiology asked to see for continued complaints of belching, bloating, and distention. She remains on Carafate QID, protonix daily, pepcid daily and
tums. In reviewing with patient she admits to feeling ill and vomiting prior to admission. She has hx GERD with rare use of antiacids and this is much more severe than prior symptom. She admits to eating dinner last PM with marked distention and
worsening symptoms with continued belching and upper abdominal pain. Symptoms also worse with sitting up. She has used some Dilaudid for pain after admission but then given Toradol but now not taking any pain meds. She does take Meloxicam daily
prior to admission.
She denies current dysphagia, GERD, vomiting, and has been passing loose stools with typically formed stools daily. Last colonoscopy 2018 with diverticulosis and hemorrrhoids, EGD 2019 with erythema in stomach.
Past Medical History
Past Medical History: GERD, HTN and Other (obesity, spinal stenosis, DJD, nephrolithiasis, colon polyps, viteous detachment )
Past Surgical History: Orthopedic (left DESTINEY) and Urological (ureteroscopy/lithotripsy )
Social History
Tobacco: Non-Smoker
Alcohol: Occasional
Drug: None
Personal:
Living: With Family
Employment: Retired
Family History
Family History: Other (sister with breast CA, sister with lupus, parents with COPD, CAD)
Allergies / Home Medications
Allergy/AdvReac Type Severity Reaction Status Date / Time
latex Allergy Rash Verified 04/07/24 01:11
levofloxacin Allergy Rash Verified 04/06/24 22:31
lisinopril Allergy Rash Verified 04/06/24 22:31
�Medication �Instructions �Recorded
acetaminophen 500 mg tablet 500 mg PO DAILY Pain 04/07/24
alendronate 70 mg tablet (Fosamax) 70 mg PO QWEEK OSTEOPOROSIS 04/07/24
cetirizine 10 mg tablet (Zyrtec) 10 mg PO DAILY Allergies 04/07/24
cholecalciferol (vitamin D3) 125 125 mcg PO DAILY Supplement 04/07/24
mcg (5,000 unit) tablet (Vitamin
D3)
cyanocobalamin (vitamin B-12) 1,000 mcg PO DAILY Supplement 04/07/24
1,000 mcg tablet
meloxicam 15 mg tablet 15 mg PO DAILY Pain 04/07/24
metoprolol succinate 100 mg 100 mg PO DAILY Blood Pressure 04/07/24
tablet,extended release 24 hr
(Toprol XL)
olmesartan 40 1 tab PO DAILY Blood Pressure 04/07/24
mg-hydrochlorothiazide 12.5 mg
tablet
rosuvastatin 10 mg tablet 10 mg PO DAILY High Cholesterol 04/07/24
Review of Systems
-
History Source: Patient and Family
Constitutional: Reports Fever (on admission )
EENT: Reports No Symptoms
Respiratory: Reports Trouble Breathing (minimal but did require O2 use )
Cardiac: Reports No Symptoms
Abdomen/GI: Reports Abdominal Pain, Nausea, Diarrhea and Other (bloating, belching )
: Reports No Symptoms
Musculoskeletal: Reports No Symptoms
Skin: Reports No Symptoms
Neurological: Reports Weakness
Endocrine: Reports No Symptoms
Hematologic/Lymphatic: Reports No Symptoms
Vital Signs
Temp Pulse Resp BP Pulse Ox
98.3 F 80 18 153/77 95
04/11/24 08:14 04/11/24 08:16 04/11/24 08:14 04/11/24 08:16 04/11/24 08:15
Physical Exam
Exam
General: Other (some di)
HEENT: Normocephalic and Anicteric
Respiratory: Clear
Cardiac: Regular Rhythm
GI: Soft, Tender and Distended
Musculoskeletal: No Clubbing and No Cyanosis
Skin: Warm and Dry
Neuro: Awake, Alert and AO x 3
Psych: Calm
Results
WBC 9.5 10^3/uL (4.8-10.8) 04/11/24 08:37
Hgb 11.6 g/dL (12.0-16.0) L 04/11/24 08:37
Hct 32.4 % (37.0-47.0) L 04/11/24 08:37
MCV 84.2 fL (81.0-99.0) 04/11/24 08:37
Plt Count 220 10^3/uL (130-400) D 04/11/24 08:37
Absolute Neuts (auto) 6.6 10^3/uL (1.4-6.5) H 04/06/24 22:45
Sodium 138 mmol/L (135-145) 04/11/24 08:37
Potassium 3.7 mmol/L (3.5-5.1) 04/11/24 08:37
Chloride 104 mmol/L (98-107) 04/11/24 08:37
Carbon Dioxide 23 mmol/L (22-30) 04/11/24 08:37
BUN 10 mg/dl (7-17) 04/11/24 08:37
Creatinine 0.8 mg/dL (0.6-1.0) 04/11/24 08:37
Calcium 9.1 mg/dl (8.4-10.2) 04/11/24 08:37
Total Bilirubin 0.4 mg/dl (0.2-1.3) 04/06/24 22:45
AST 37 U/L (14-36) H 04/06/24 22:45
ALT 28 U/L (0-35) 04/06/24 22:45
Alkaline Phosphatase 65 U/L (38-126) 04/06/24 22:45
Lipase 58 U/L (23-300) 04/06/24 22:45
Diagnostic Image Results:
04/07/24 CT Abd/pel Without Iv Or Oral
Moderate left hydronephrosis and surrounding perinephric inflammation secondary to an obstructing 9.3 mm calculus in the proximal ureter. No perinephric fluid collection.
A few punctate nonobstructing left renal calculi with the largest in the lower pole measuring up to 2.5 mm.
Left ovarian cyst measuring up to 6.1 cm. Further evaluation with routine, nonemergent pelvic ultrasound is recommended for further evaluation.
Prior GI Procedures:
EGD: 02/2019 Do - 2 cm hiatal hernia.
- Erythematous mucosa in the stomach. Biopsied.
- Normal examined duodenum. Biopsied.'
bx focal mild acute inflammation, no celiac, no metaplasia, no h pylori
Colonoscopy: 02/2019 Do - The entire examined colon is normal.
- Scattered sigmoid diverticulosis.
- Scarred area seen in sigmoid colon likely from prior
EMR.
- Non-bleeding internal hemorrhoids.
- No specimens collected.
Assessment / Plan
-
Pt is a 69yo with hx HTN, obesity, renal stone with ER presentation 04/07 with flank pain, nausea, chills, fever, and emesis with concern for sepsis /klebsiella bacteremia with UTI with obstructing proximal ureteral stone with stent placement 04/07.
She continued with epigastric tenderness with eval by cardiology with low probability of cardiac etiology asked to see for continued complaints of belching, bloating, and distention. She remains on Carafate QID, protonix daily, pepcid daily and
tums. In reviewing with patient she admits to feeling ill and vomiting prior to admission. She has hx GERD with rare use of antiacids and this is much more severe than prior symptom. She admits to eating dinner last PM with marked distention and
worsening symptoms with continued belching and upper abdominal pain. Symptoms also worse with sitting up. She has used some Dilaudid for pain after admission but then given Toradol but now not taking any pain meds. She does take Meloxicam daily
prior to admission.
-abdominal bloating, distention, belching with concern for ileus
-sepsis with klebsiella UTI/bacteremia with obstructing stone/hydro and stent placement
-hx GERD
-hx meloxicam use for arthritis
other med problems:
-HTN
-DJD
-obesity
PLAN:etiology of upper GI bloating, belching, distention related to ileus with use of pain med, urologic issue vs other
check obstruction series
discussed with patient and daughter if ileus present consider NPO, NGT(if patient agreeable) - ambulation, limit pain med( currently not taking)
hold Carafate
cont PPI daily change pepcid to HS
currently on regular diet -- after review with imaging will decide on continuing diet ok
will follow
-
-
Thank you for consultation and allowing me to participate in the patient's care. Please call the concrete pavement installer GI physician during the after hours with any questions or concerns.
[2024-04-11] MEDS: NEUTRA-PHOS POWDER PACKET PO (10:41)
[2024-04-11] MEDS: LASIX 40 MG IV (10:46)
[2024-04-11] MEDS: PEPCID 20 MG IV (10:49)
[2024-04-11] MEDS: NSS (PRESERVATIVE FREE) 8 ML IV (10:50)
[2024-04-11] MEDS: NSS (PRESERVATIVE FREE) 10 ML IV (10:53)
[2024-04-11] MEDS: PROTONIX IV 40 MG IV ×2 (10:53→21:49)
[2024-04-11] MEDS: TUMS EX (EXTRA STRENGTH) CHEWABLE 2 TABLET PO ×3 (10:57→21:48)
[2024-04-11 11:28] VITALS: BP 137/82; BP 143/91; PULSE 104; PULSE 115; PULSE 78
[2024-04-11 15:00] VITALS: O2SAT 93
[2024-04-11 15:35] VITALS: BP 134/83
--- NOTE | 2024-04-11 17:09 | W.PN.URO.CBU ---
Today's Communication / Plan
-
Will follow up as outpatient to plan definitive stone surgery
Assessment / Plan
-
Probable urosepsis secondary to UTI and an obstructing left proximal ureteral stone: Klebsiella in blood and urine
s/p urgent left JJ stent 04/07/24
Diarrhea: resolved
Diagnosis
-
Date of Service: April 11, 2024
-
Patient Diagnosis:
Post Op Day:
Patient Diagnosis:
Partially obstructing 1 cm left proximal ureteral stone
Probable urosepsis: Klebsiella in blood and urine
Fever/chills: resolving
s/p urgent left JJ stent placement 04/07/24
---
Patient has a history of nephrolithiasis
She underwent ESWL with Dr. Wallace 2004
Subjective
-
Feeling much better
Voiding w/o dysuria or gross hematuria
No left flank pain
Objective
-
Vital Signs
Temp Pulse Resp BP Pulse Ox
98.3 F 112 18 134/83 92
04/11/24 15:35 04/11/24 15:35 04/11/24 15:35 04/11/24 15:35 04/11/24 15:35
Intake and Output
04/10/24 04/11/24 04/12/24
06:59 06:59 06:59
Intake Total 2610 / 2610 1200 / 1200
Output Total 2215 / 2215 4024 / 4024
Balance 395 / 395 -2824 / -2824
Intake:
Oral fluids 360 / 360 1200 / 1200
IV fluids (Total) 2250 / 2250
Output:
Liquid stool amount 15 15
Rectum 15 15
Urine, Berry 2200 / 2200 1374 / 1374
Urine, Voided 2650 / 2650
Other:
Number of unmeasured liquid
stools
Rectum 1
Laboratory Results
04/11/24 08:37
04/11/24 08:37
Review of Systems
-
Constitutional: No Symptoms
Respiratory: No Symptoms
Cardiac: No Symptoms
: No Symptoms
Physical Exam
-
General - well developed, well nourished, no acute distress
Abdomen - soft, non-tender
Counseling
-
Will see again as an outpatient
[2024-04-11] MEDS: LOVENOX 40 MG SC (17:33)
[2024-04-11 20:11] VITALS: BP 112/76; BP 118/74; BP 125/68; PULSE 120; PULSE 131; PULSE 95
[2024-04-11] MEDS: MELATONIN 5 MG PO (21:48)
[2024-04-11] MEDS: TUMS EX (EXTRA STRENGTH) CHEWABLE PO (23:28)
[2024-04-11] MEDS: ZYRTEC 10 MG PO (23:28)
[2024-04-11] MEDS: REGLAN 5 MG IV (23:29)
[2024-04-11] MEDS: MYLICON 80 MG PO (23:29)
[2024-04-11 23:42] VITALS: BP 148/73
[2024-04-12] MEDS: TUMS EX (EXTRA STRENGTH) CHEWABLE PO ×2 (04:09→23:00)
[2024-04-12 06:00] VITALS: BMI 29.0
[2024-04-12] MEDS: TUMS EX (EXTRA STRENGTH) CHEWABLE 2 TABLET PO ×4 (06:23→21:44)
[2024-04-12] MEDS: REGLAN 5 MG IV ×2 (06:23→11:26)
[2024-04-12 07:55] VITALS: BP 120/68
--- NOTE | 2024-04-12 08:36 | W.PN.HOSP.TC ---
Addendum entered and electronically signed by Julio César Mera MD 04/12/24 14:08:
Acute kidney injury
-Creatinine 1.1 today, was 0.8
-Will stop IV Lasix
-Change Bactrim to Augmentin
Original Note:
Today's Communication/Plan
-
Hopeful for discharge tomorrow with improvement of abdominal symptoms
Assessment / Plan
Assessment / Plan
HPI: 69y F with PMH significant for HTN, DJD and prior nephrolithiasis who presents to ED complaining of L flank pain and N/V.
Left Ureterolithiasis with Moderate Hydronephrosis
Obstructive Uropathy secondary to the above
UTI
Klebsiella bacteremia
Sepsis secondary to the above
- Appreciate urology input, status post cystoscopy with left ureteral stent placement on 04/07, Berry removed 04/10
- Blood and urine cultures growing Klebsiella, sensitivities reviewed. Repeat blood cultures negative to date
- Status post IV Rocephin, currently on Bactrim to complete a 14-day course
- Needs to follow-up with urology in the office in 2 weeks for definitive stone management
- PT rec HH
Severe epigastric abdominal pain, bloating, belching
Probable gastritis
GERD
-Appreciate GI input, continue Protonix 40 mg IV twice daily, Pepcid 20 mg at bedtime, Reglan 5 mg IV every 6 hours
-Currently on clear liquid diet, can advance to low-fat, low-cholesterol, low residue, sick small meals as tolerated
Small bilateral pleural effusions
-Continue IV Lasix, incentive spirometer
Hypokalemia
� Replete, recheck a.m. labs
Hypophosphatemia
-Repleted and resolved
Reproducible substernal chest pain with left arm heaviness
-Chest pain is reproducible, she states it is different from her reflux pain
-She is also complaining of left arm heaviness
-Appreciate cardiology input, reproducible chest pain due to vomiting
Benign Hypertension
- BP stable at present.
- Continue metoprolol and benicar with hold parameters
- Holding hydrochlorothiazide while getting Lasix
DJD
Chronic L Hip Pain
- Patient with chronic L hip discomfort s/p prior DESTINEY and difficult rehab / post-op course.
- Continue pain control.
- PT / OT - rec HH.
Insomnia
-Started melatonin and Benadryl at bedtime
Obesity due to excess calories
- Affects all aspects of care.
- Encourage healthy diet and increase activity as able with goal of weight loss.
DVT Prophylaxis: SQ lovenox
Code Status: Full
Updated daughter at bedside 04/12
Total time spent to see the patient on the floor, examine the patient, review data and lab results, discuss treatment plan with patient, nursing staff around 51 minutes.
Physical Exam
General: Obese, no acute distress
HEENT: Normocephalic, Atraumatic, EOMI, MMM
Respiratory: Clear to Auscultation bilaterally
Cardiac: Normal S1/S2, Regular Rate and Rhythm
GI: Soft, Nontender, Nondistended, Normal Bowel Sounds
Extremities: No Clubbing, Cyanosis, or Edema
Neuro: Nonfocal/Grossly Intact
Psych: Calm, Cooperative
Derm: No Visible lesions
Anticipated Discharge: Within 24 hours
Subjective/Interval History
-
Date of Service: April 12, 2024
Continues to have epigastric abdominal pain, bloating, belching, mildly improved from yesterday. No fever, no vomiting.
Objective Data
-
Labs:
Laboratory Results
04/12/24
07:42
WBC Pending
Hgb Pending
Hct Pending
Plt Count Pending
Sodium Pending
Potassium Pending
Chloride Pending
Carbon Dioxide Pending
BUN Pending
Creatinine Pending
Glucose Pending
Calcium Pending
Vital Signs:
Vital Signs
Temp Pulse Resp BP Pulse Ox
98.4 F 86 18 148/73 94
04/11/24 23:42 04/11/24 23:42 04/11/24 23:42 04/11/24 23:42 04/11/24 23:42
I&O
04/11/24 04/12/24 04/13/24
06:59 06:59 06:59
Intake Total 1200 / 1200 1240 / 1240
Output Total 4024 / 4024 2375 / 2375
Balance -2824 / -2824 -1135 / -1135
[2024-04-12] MEDS: FLOMAX 0.4 MG PO (08:50)
[2024-04-12] MEDS: TOPROL XL 25 MG PO (08:50)
[2024-04-12] MEDS: BACTRIM DS 800 MG/160 MG 1 TABLET PO (08:50)
[2024-04-12] MEDS: PROTONIX IV 40 MG IV (08:50)
[2024-04-12] MEDS: NSS (PRESERVATIVE FREE) 10 ML IV (08:50)
[2024-04-12] MEDS: BENICAR 40 MG PO (08:50)
[2024-04-12] MEDS: VISBIOME 2 CAP PO (08:50)
[2024-04-12 08:57] LABS: Blood Urea Nitrogen 13 mg/dl (7-17); Calcium 9.4 mg/dl (8.4-10.2); Carbon Dioxide 27 mmol/L (22-30); Chloride 100 mmol/L (98-107); Estimated Creatinine Clearance 40 ml/min; Glucose 99 mg/dl (70-99); Phosphorus 5.4 mg/dl (2.5-4.5); Potassium 3.3 mmol/L (3.5-5.1); Sodium 136 mmol/L (135-145); eGFR 53.72
[2024-04-12 09:31] LABS: Hematocrit 33.6 % (37.0-47.0); Hemoglobin 11.9 g/dL (12.0-16.0); Mean Corp Hgb Conc. 35.4 g/dL (33.0-37.0); Mean Corpuscular Hgb 29.8 pg (27.0-31.0); Mean Platelet Volume 9.7 fL (7.4-10.4); Platelet Count 253 10^3/uL (130-400); Red Cell Dist. Width 12.3 % (11.5-14.5); White Blood Cell Count 9.2 10^3/uL (4.8-10.8)
--- NOTE | 2024-04-12 10:24 | W.PN.URO.CBU ---
Today's Communication / Plan
-
no new gu intervention
Assessment / Plan
-
Probable urosepsis secondary to UTI and an obstructing left proximal ureteral stone: Klebsiella in blood and urine
s/p urgent left JJ stent 04/07/24
Diarrhea: resolved
Diagnosis
-
Date of Service: April 12, 2024
-
Patient Diagnosis:
Post Op Day:
Patient Diagnosis:
Post Op Day:
Patient Diagnosis:
Partially obstructing 1 cm left proximal ureteral stone
Probable urosepsis: Klebsiella in blood and urine
Fever/chills: resolving
s/p urgent left JJ stent placement 04/07/24
---
Patient has a history of nephrolithiasis
She underwent ESWL with Dr. Wallace 2004
Subjective
-
tolerating stent no fevr
Objective
-
Vital Signs
Temp Pulse Resp BP Pulse Ox
98.4 F 90 18 120/68 94
04/11/24 23:42 04/12/24 08:50 04/11/24 23:42 04/12/24 08:50 04/11/24 23:42
Intake and Output
04/11/24 04/12/24 04/13/24
06:59 06:59 06:59
Intake Total 1200 / 1200 1240 / 1240
Output Total 4024 / 4024 2375 / 2375
Balance -2824 / -2824 -1135 / -1135
Intake:
Oral fluids 1200 / 1200 1240 / 1240
Output:
Urine, Berry 1374 / 1374
Urine, Voided 2650 / 2650 2375 / 2375
Laboratory Results
04/12/24 07:42
04/12/24 07:42
Review of Systems
-
: Urgency
Physical Exam
-
General - well developed, well nourished, no acute distress
Chest - clear bilaterally
Abdomen - soft, non-tender, positive bowel sounds, no CVAT, no incisional pain or distention
Genitalia - normal
Rectal - normal
Skin - warm & dry with no rash
Neuro - AOx3, no motor deficits
Extremities - no clubbing, no cyanosis, no edema
Incision - clean, dry
Dressing - clean, dry, intact
Care Review
Data Reviewed
Discussed with: Family
CT Scan: Image Pers Reviewed
[2024-04-12] MEDS: KCL 20 MEQ PO ×2 (11:26→17:19)
[2024-04-12 15:00] VITALS: BP 115/59; BP 123/65; BP 99/63; PULSE 115; PULSE 91; PULSE 98
[2024-04-12 15:30] VITALS: BP 123/65
--- NOTE | 2024-04-12 16:05 | W.PN.GI.CBS2 ---
Today's Communication / Plan
-
change reglan/ppi dosing, dc planning, gi signing off
Assessment / Plan
-
69 yo F pmh as below presenting to admitted with flank pain, nausea, fever, vomiting. She has been seen by urology and found to have urosepsis with stent placed. Klebsiella both and blood in urine. She had some diarrhea which has resolved.
However, she is complaining of ongoing epigastric pain, nausea and bloating. She is on meloxicam daily for the last 4 years for osteoarthritis. Her hemoglobin is 11.6 with normal BUN. Abdominal x-ray was unremarkable. This could simply be from
her urosepsis. She could also have gastroparesis in the setting of infection. With her NSAID use she could have peptic ulcer disease.
Much improved with reglan supporting likely gastroparesis 2/2 infection.
Change reglan to prn. Discussed with pt risk of tardive dyskensia.
Can do protonix daily instead of bid and stop pepcid.
Gas-X prn. Can also do FDGard.
Continue gastroparesis diet. Reviewed with daughter and pt diet - can advance at home as tolerated.
Follow up Dr. Mera for cscope. Pt given our card to call if any issues.
GI will sign off please call with questions.
Subjective
Subjective
Date of Service: April 12, 2024
patient feels improved tolerating diet
Objective
Data Reviewed
Laboratory Data:
Laboratory Results
04/12/24 07:42
04/12/24 07:42
Laboratory Results
Phosphorus 5.4 mg/dl (2.5-4.5) H 04/12/24 07:42
Magnesium 1.7 mg/dl (1.6-2.3) 04/10/24 07:38
Total Bilirubin 0.4 mg/dl (0.2-1.3) 04/06/24 22:45
AST 37 U/L (14-36) H 04/06/24 22:45
ALT 28 U/L (0-35) 04/06/24 22:45
Alkaline Phosphatase 65 U/L (38-126) 04/06/24 22:45
Lipase 58 U/L (23-300) 04/06/24 22:45
Vital Signs and I&O:
Vital Signs
Temp Pulse Resp BP Pulse Ox
98.6 F 90 16 120/68 90
04/12/24 07:55 04/12/24 08:50 04/12/24 07:55 04/12/24 08:50 04/12/24 07:55
I&O
04/11/24 04/12/24 04/13/24
06:59 06:59 06:59
Intake Total 1200 / 1200 1240 / 1240
Output Total 4024 / 4024 2375 / 2375
Balance -2824 / -2824 -1135 / -1135
Physical Exam
Physical Exam
GI: Distended and Non Tender
[2024-04-12] MEDS: LOVENOX 40 MG SC (17:19)
[2024-04-12 19:50] VITALS: BP 121/65; BP 123/62; BP 124/64; PULSE 87; PULSE 92; PULSE 97
[2024-04-12] MEDS: MYLICON 80 MG PO (21:44)
[2024-04-12] MEDS: MELATONIN 5 MG PO (21:44)
[2024-04-12] MEDS: AUGMENTIN 875 MG/125 MG 1 TABLET PO (21:44)
[2024-04-12] MEDS: NSS (PRESERVATIVE FREE) 8 ML IV (21:45)
[2024-04-12] MEDS: PEPCID 20 MG IV (21:45)
[2024-04-12] MEDS: ZYRTEC 10 MG PO (23:00)
[2024-04-12 23:55] VITALS: BP 131/64
[2024-04-13] MEDS: TUMS EX (EXTRA STRENGTH) CHEWABLE PO (03:30)
[2024-04-13 06:00] VITALS: BMI 28.8
[2024-04-13 07:55] VITALS: BP 119/63
[2024-04-13] MEDS: PROTONIX 40 MG PO (08:29)
[2024-04-13] MEDS: AUGMENTIN 875 MG/125 MG 1 TABLET PO (08:29)
[2024-04-13] MEDS: TOPROL XL 25 MG PO (08:29)
[2024-04-13] MEDS: TUMS EX (EXTRA STRENGTH) CHEWABLE 2 TABLET PO ×3 (08:29→14:11)
[2024-04-13] MEDS: BENICAR 40 MG PO (08:29)
[2024-04-13] MEDS: VISBIOME 2 CAP PO (08:29)
[2024-04-13] MEDS: FLOMAX 0.4 MG PO (08:29)
--- NOTE | 2024-04-13 08:42 | W.PN.HOSP.TC ---
Today's Communication/Plan
-
Discharge today
Assessment / Plan
Assessment / Plan
HPI: 69y F with PMH significant for HTN, DJD and prior nephrolithiasis who presents to ED complaining of L flank pain and N/V.
Left Ureterolithiasis with Moderate Hydronephrosis
Obstructive Uropathy secondary to the above
UTI
Klebsiella bacteremia
Sepsis secondary to the above
- Appreciate urology input, status post cystoscopy with left ureteral stent placement on 04/07, Berry removed 04/10
- Blood and urine cultures growing Klebsiella, sensitivities reviewed. Repeat blood cultures negative to date
- Status post IV Rocephin, s/p bactrim, currently on augmentin to complete a 14-day course
- Needs to follow-up with urology in the office in 2 weeks for definitive stone management
- PT rec HH
Severe epigastric abdominal pain, bloating, belching
Probable gastritis
GERD
-Appreciate GI input, symptoms improved on Protonix 40 mg IV twice daily, Pepcid 20 mg at bedtime, Reglan 5 mg IV every 6 hours
-Can continue oral Protonix, Reglan 5 mg p.o. ACHS for 10 days, tums
-Counseled on low-fat, low-cholesterol, low residue diet, 6 small meals
NAMRATA
-Creatinine 1.1, was 0.8
-Bactrim changed to Augmentin
-Hold olmesartan�hydrochlorothiazide 1 week after discharge
Small bilateral pleural effusions
-S/p IV Lasix, incentive spirometer
Hypokalemia
� Repleted and resolved
Hypophosphatemia
-Repleted and resolved
Reproducible substernal chest pain with left arm heaviness
-Chest pain is reproducible, she states it is different from her reflux pain
-She is also complaining of left arm heaviness
-Appreciate cardiology input, reproducible chest pain due to vomiting
Benign Hypertension
- BP stable at present.
- Continue metoprolol, hold Benicar/hydrochlorothiazide for 1 week due to NAMRATA
DJD
Chronic L Hip Pain
- Patient with chronic L hip discomfort s/p prior DESTINEY and difficult rehab / post-op course.
- Continue pain control.
- PT / OT - rec HH.
Insomnia
-Started melatonin and Benadryl at bedtime
Obesity due to excess calories
- Affects all aspects of care.
- Encourage healthy diet and increase activity as able with goal of weight loss.
DVT Prophylaxis: SQ lovenox
Code Status: Full
Updated daughter at bedside 04/13
Physical Exam
General: Obese, no acute distress
HEENT: Normocephalic, Atraumatic, EOMI, MMM
Respiratory: Clear to Auscultation bilaterally
Cardiac: Normal S1/S2, Regular Rate and Rhythm
GI: Soft, Nontender, Nondistended, Normal Bowel Sounds
Extremities: No Clubbing, Cyanosis, or Edema
Neuro: Nonfocal/Grossly Intact
Psych: Calm, Cooperative
Derm: No Visible lesions
Anticipated Discharge: Today
Subjective/Interval History
-
Date of Service: April 12, 2024
Patient's epigastric abdominal pain is improved. She continues to belch, and have abdominal fullness. She is tolerating her diet. No fever, no vomiting.
Objective Data
-
Labs:
Laboratory Results
04/12/24
07:42
WBC 9.2
Hgb 11.9 L
Hct 33.6 L
Plt Count 253
Sodium 136
Potassium 3.3 L
Chloride 100
Carbon Dioxide 27
BUN 13
Creatinine 1.1 H
Glucose 99
Calcium 9.4
Vital Signs:
Vital Signs
Temp Pulse Resp BP Pulse Ox
98.6 F 90 16 120/68 90
04/12/24 07:55 04/12/24 08:50 04/12/24 07:55 04/12/24 08:50 04/12/24 07:55
I&O
04/11/24 04/12/24 04/13/24
06:59 06:59 06:59
Intake Total 1200 / 1200 1240 / 1240
Output Total 4024 / 4024 2375 / 2375
Balance -2824 / -2824 -1135 / -1135
--- NOTE | 2024-04-13 09:22 | W.PN.URO.CBU ---
Today's Communication / Plan
-
fannie when ok by hospiyalist
Assessment / Plan
-
Probable urosepsis secondary to UTI and an obstructing left proximal ureteral stone: Klebsiella in blood and urine
s/p urgent left JJ stent 04/07/24
Diarrhea: resolved
Diagnosis
-
Date of Service: April 13, 2024
-
Patient Diagnosis:
Post Op Day:
Patient Diagnosis:
Post Op Day:
Patient Diagnosis:
Post Op Day:
Patient Diagnosis:
Partially obstructing 1 cm left proximal ureteral stone
Probable urosepsis: Klebsiella in blood and urine
Fever/chills: resolving
s/p urgent left JJ stent placement 04/07/24
---
Patient has a history of nephrolithiasis
She underwent ESWL with Dr. Wallace 2004
Subjective
-
stnt sxs but no systemic complints
Objective
-
Vital Signs
Temp Pulse Resp BP Pulse Ox
98.4 F 87 16 119/63 93
04/13/24 07:55 04/13/24 07:55 04/13/24 07:55 04/13/24 07:55 04/13/24 07:55
Intake and Output
04/12/24 04/13/24 04/14/24
06:59 06:59 06:59
Intake Total 1240 / 1240 840 / 840
Output Total 2375 / 2375 2580 / 2580
Balance -1135 / -1135 -1740 / -1740
Intake:
Oral fluids 1240 / 1240 840 / 840
Output:
Urine, Voided 2374 / 2375 2580 / 2580
Other:
Number of approximated MODERATE 2
amounts of urine
Review of Systems
-
: Frequency
Physical Exam
-
General - well developed, well nourished, no acute distress
Chest - clear bilaterally
Abdomen - soft, non-tender, positive bowel sounds, no CVAT, no incisional pain or distention
Genitalia - normal
Rectal - normal
Skin - warm & dry with no rash
Neuro - AOx3, no motor deficits
Extremities - no clubbing, no cyanosis, no edema
Incision - clean, dry
Dressing - clean, dry, intact
Care Review
Data Reviewed
Discussed with: Family
[2024-04-13 09:23] LABS: Hematocrit 34.7 % (37.0-47.0); Mean Corp Hgb Conc. 34.6 g/dL (33.0-37.0); Mean Corpuscular Hgb 29.9 pg (27.0-31.0); Mean Corpuscular Volume 86.5 fL (81.0-99.0); Mean Platelet Volume 10.2 fL (7.4-10.4); Platelet Count 226 10^3/uL (130-400); Red Blood Cell Count 4.01 10^6/uL (4.20-5.40); Red Cell Dist. Width 12.5 % (11.5-14.5); White Blood Cell Count 8.2 10^3/uL (4.8-10.8)
[2024-04-13 09:27] LABS: Blood Urea Nitrogen 15 mg/dl (7-17); Calcium 9.5 mg/dl (8.4-10.2); Carbon Dioxide 23 mmol/L (22-30); Chloride 104 mmol/L (98-107); Estimated Creatinine Clearance 40 ml/min; Glucose 101 mg/dl (70-99); Potassium 4.2 mmol/L (3.5-5.1); Sodium 137 mmol/L (135-145); eGFR 53.72
[2024-04-13] MEDS: MIRALAX 17 GRAMS PO (10:33)
[2024-04-13] MEDS: REGLAN 5 MG PO (10:47)
--- NOTE | 2024-04-13 13:31 | W.DCSUMMARY ---
Discharge Summary
Discharge Data
Date of Admission: 04/07/24
Date of Discharge: 04/13/24
-
Pending Results: No
Hospital Course
Discharge diagnoses:
Sepsis
Klebsiella bacteremia
Acute urinary tract infection
Left Ureterolithiasis with Moderate Hydronephrosis
Obstructive Uropathy secondary to the above
Gastroparesis secondary to infection
Severe epigastric abdominal pain, bloating, belching
Gastroesophageal reflux disease
Acute kidney injury
Small bilateral pleural effusions
Hypokalemia
Hypophosphatemia
Musculoskeletal chest pain from vomiting
Benign essential hypertension
Consults: Urology, cardiology, GI
CT abd/pelvis:
Moderate left hydronephrosis and surrounding perinephric inflammation secondary to an obstructing 9.3 mm calculus in the proximal ureter. No perinephric fluid collection.
A few punctate nonobstructing left renal calculi with the largest in the lower pole measuring up to 2.5 mm.
Left ovarian cyst measuring up to 6.1 cm. Further evaluation with routine, nonemergent pelvic ultrasound is recommended for further evaluation.
Procedures:
04/07/2024 cystoscopy with left ureteral stent placement
Hospital course:
69-year-old female with a past medical history of hypertension, degenerative disc disease, gastroesophageal reflux disease, and hyperlipidemia was admitted for sepsis secondary to acute urinary tract infection. She was also found to have left
ureterolithiasis with moderate hydronephrosis. She was seen in conjunction with urology, and underwent cystoscopy with left ureteral stent placement.
Patient was treated with IV Rocephin. Blood and urine cultures grew out Klebsiella. Her Rocephin was increased to 2 g IV every 24 hours. Repeat blood cultures were negative. Patient was transitioned to Bactrim.
Patient also complained of chest pain, and left arm heaviness. She was seen in conjunction with cardiology. Cardiology suspects that her chest pain is from her vomiting. Her EKG was nonischemic, troponins were negative. Cardiology states she
does not any need any further workup.
Patient's hospital course was complicated severe epigastric abdominal pain, abdominal bloating, and belching. Patient was seen in conjunction with GI. Her symptoms improved on Reglan, Protonix, Tums. GI suspects patient has infection induced
gastroparesis. GI recommends her being discharged on Reglan for 10 days, Protonix, and Tums. She has been counseled to eat a low-fat/low-cholesterol/low residue diet, 6 small meals. She also needs to sit upright following meals.
Patient does have small bilateral pleural effusions, from her IV fluids. She did receive 1 dose of IV Lasix. She denies shortness of breath, and does not need any more Lasix upon discharge.
Patient was noted to have acute kidney injury. Her creatinine increased from 0.8 to 1.1. Her Bactrim was changed to Augmentin. She can continue Augmentin to complete a 14-day course. She has been instructed to hold her
olmesartan�hydrochlorothiazide until she has repeat blood work with her PCP. She needs to have a CBC and BMP checked with her PCP in 1 week. Her olmesartan�hydrochlorothiazide can be resumed if her creatinine is stable.
Patient was seen in conjunction with PT, who recommended home care. She is medically stable for discharge. She needs to follow-up with her primary care doctor in 1 week, as well as urology in the office in 2 weeks.
Disposition: Home with home care
Discharge planning: Required 45 minutes
Discharge Plan
-
Patient Disposition: Home with Home Care
Discharge Diagnosis/Procedures: Sepsis, Klebsiella bacteremia, urinary tract infection, left ureterolithiasis with moderate hydronephrosis, abdominal pain/bloating/belching, acute kidney injury
Condition: Fair
Diet: Low Fat, Low Cholesterol and Low Fiber
Additional Diets: 6 small meals, sit upright
Blood Work: BMP and CBC with your PCP in 1 week
Referrals:
Alfonso Kendrick MD [Active] - in two weeks
Day Juarez CRNP [Family Provider] - in one week
Prescriptions:
New
Antacid Extra-Strength 300 mg (750 mg) Tablet,Chewable
2 tab PO Q4H 10 Days Qty: 120 0RF
metoclopramide HCl 5 mg Tablet
5 mg PO ACHS 10 Days Qty: 40 0RF
pantoprazole 40 mg Tablet,Delayed Release (Dr/Ec)
40 mg PO DAILY Qty: 30 0RF
simethicone 80 mg Tablet,Chewable
80 mg PO QIDPRN PRN (Reason: bloating) Qty: 30 0RF
tamsulosin 0.4 mg Capsule
0.4 mg PO DAILY Qty: 30 0RF
amoxicillin-pot clavulanate 875-125 mg Tablet
1 tab PO Q12 8 Days Qty: 16 0RF
Continued
cetirizine [Zyrtec] 10 mg Tablet
10 mg PO DAILY
alendronate [Fosamax] 70 mg Tablet
70 mg PO QWEEK
metoprolol succinate [Toprol XL] 100 mg Tablet Extended Release 24 Hr
100 mg PO DAILY
cyanocobalamin (vitamin B-12) 1,000 mcg Tablet
1,000 mcg PO DAILY
acetaminophen 500 mg Tablet
500 mg PO DAILY
rosuvastatin 10 mg Tablet
10 mg PO DAILY
cholecalciferol (vitamin D3) [Vitamin D3] 125 mcg (5,000 unit) Tablet
125 mcg PO DAILY
Held
olmesartan-hydrochlorothiazide 40-12.5 mg Tablet
1 tab PO DAILY
Hold Instructions: Resume on 04/21/24.
Discontinued
meloxicam 15 mg Tablet
15 mg PO DAILY
Discharge Orders:
Discharge Patient (As Directed); Ordered 04/13/24
Ordered By: Julio César Mera
Discharge Date and Time
Discharge Date/Time: 04/13/24 14:46
Print Language: NIGERIAN
--- NOTE | 2024-04-13 14:13 | CM ---
Iza is being discharged to home today with no needs. IV abx converted to PO and no O2 needs.
Plan: Discharge to home with family and no needs.
PCP: JACI Cespedes
Pharmacy: [facility] in [place] on [facility]
--- NOTE | 2024-04-13 14:56 | W.PN.GI.CBS2 ---
Today's Communication / Plan
-
discharge
Assessment / Plan
-
69 yo F pmh as below presenting to admitted with flank pain, nausea, fever, vomiting. She has been seen by urology and found to have urosepsis with stent placed. Klebsiella both and blood in urine. She had some diarrhea which has resolved.
However, she is complaining of ongoing epigastric pain, nausea and bloating. She is on meloxicam daily for the last 4 years for osteoarthritis. Her hemoglobin is 11.6 with normal BUN. Abdominal x-ray was unremarkable. This could simply be from
her urosepsis. She could also have gastroparesis in the setting of infection. With her NSAID use she could have peptic ulcer disease.
Much improved with reglan supporting likely gastroparesis 2/2 infection.
Continue reglan. Discussed with pt risk of tardive dyskensia.
Can do protonix daily instead of bid and stop pepcid.
Gas-X prn. Can also do FDGard.
Continue gastroparesis diet. Reviewed with daughter and pt diet at length yesterday- can advance at home as tolerated.
Follow up Dr. Mera for cscope. Pt given our card to call if any issues.
Patient being discharged.
Subjective
Subjective
Date of Service: April 13, 2024
I was asked to re-assess pt prior to discharge
some belching
Objective
Data Reviewed
Laboratory Data:
Laboratory Results
04/13/24 07:07
04/13/24 07:07
Laboratory Results
Phosphorus 5.4 mg/dl (2.5-4.5) H 04/12/24 07:42
Magnesium 1.7 mg/dl (1.6-2.3) 04/10/24 07:38
Total Bilirubin 0.4 mg/dl (0.2-1.3) 04/06/24 22:45
AST 37 U/L (14-36) H 04/06/24 22:45
ALT 28 U/L (0-35) 04/06/24 22:45
Alkaline Phosphatase 65 U/L (38-126) 04/06/24 22:45
Lipase 58 U/L (23-300) 04/06/24 22:45
Vital Signs and I&O:
Vital Signs
Temp Pulse Resp BP Pulse Ox
98.4 F 87 16 119/63 93
04/13/24 07:55 04/13/24 07:55 04/13/24 07:55 04/13/24 07:55 04/13/24 08:30
I&O
04/12/24 04/13/24 04/14/24
06:59 06:59 06:59
Intake Total 1240 / 1240 840 / 840
Output Total 2375 / 2375 2580 / 2580
Balance -1135 / -1135 -1740 / -1740
Physical Exam
Physical Exam
GI: Non Distended and Non Tender
== END 2024-04-13 14:46 | disposition home or self-care (01) | DRG 854 ==
LOC: 4 EAST ACU 01:41
PROVIDERS: Clinical Nurse Specialist Family Health; Emergency Medicine; Specialist; ADMITTING PHYSICIAN Hospitalist; ATTENDING PHYSICIAN Family Medicine; CONSULT PHYSICIAN Internal Medicine Cardiovascular Disease; CONSULT PHYSICIAN Internal Medicine Gastroenterology; EMERGENCY PHYSICIAN Emergency Medicine; FAMILY PHYSICIAN Nurse Practitioner Adult Health
PROC: 0T778DZ Dilation of Left Ureter with Intraluminal Device, Via Natural or Artificial Opening Endoscopic (ICD-10-PCS; 2024-04-07)
DX: A41.59 Other Gram-negative sepsis (principal); J90 Pleural effusion, not elsewhere classified; N13.6 Pyonephrosis; N17.9 Acute kidney failure, unspecified; K52.1 Toxic gastroenteritis and colitis; K31.84 Gastroparesis; I10 Essential (primary) hypertension; T36.95XA Adverse effect of unspecified systemic antibiotic, initial encounter; K21.9 Gastro-esophageal reflux disease without esophagitis; M81.0 Age-related osteoporosis without current pathological fracture; E78.00 Pure hypercholesterolemia, unspecified; G47.00 Insomnia, unspecified; E87.6 Hypokalemia; E83.39 Other disorders of phosphorus metabolism; R07.89 Other chest pain; M48.00 Spinal stenosis, site unspecified; M16.12 Unilateral primary osteoarthritis, left hip; E66.09 Other obesity due to excess calories; Z68.28 Body mass index [BMI] 28.0-28.9, adult; Z96.642 Presence of left artificial hip joint; Z91.040 Latex allergy status; Z88.8 Allergy status to other drugs, medicaments and biological substances; Z87.891 Personal history of nicotine dependence; Z79.899 Other long term (current) drug therapy; Z79.83 Long term (current) use of bisphosphonates
CPT/HCPCS: 71046; 74018; 74022; 74176; 76000; 80048; 80053; 81003; 81015; 83605; 83690; 83735; 84100; 84484; 85025; 85027; 87040; 87077; 87086; 87149; 87186; 87205; 87324; 87449; 93005; 96365; 96375; 97162; 97166; 97530; 99291; C2617

== ENCOUNTER → 2024-04-21 08:31 | Outpatient (REF) | payer OTHER, SELFPAY ==
[2024-04-21 09:41] LABS: % Basophils 1.3 % (0-2); % Eosinophils 3.9 % (0-6); % Immature Granulocytes 0.3 % (0-0.5); % Lymphocytes 38.5 % (20.5-51.1); % Monocytes 11.9 % (1.7-9.3); % Neutrophils 44.1 % (42.2-75.2); Absolute Basophils 0.1 10^3/uL (0-0.2); Absolute Eosinophils 0.2 10^3/uL (0-0.7); Absolute Lymphocytes 2.4 10^3/uL (1.2-3.4); Absolute Monocytes 0.7 10^3/uL (0.1-0.6); Absolute Neutrophils 2.8 10^3/uL (1.4-6.5); Hematocrit 34.5 % (37.0-47.0); Hemoglobin 11.8 g/dL (12.0-16.0); Mean Corp Hgb Conc. 34.2 g/dL (33.0-37.0); Mean Corpuscular Hgb 29.9 pg (27.0-31.0); Mean Corpuscular Volume 87.3 fL (81.0-99.0); Mean Platelet Volume 10.2 fL (7.4-10.4); Nucleated Red Blood Cells % 0 %; Platelet Count 367 10^3/uL (130-400); Red Blood Cell Count 3.95 10^6/uL (4.20-5.40); Red Cell Dist. Width 12.3 % (11.5-14.5); White Blood Cell Count 6.2 10^3/uL (4.8-10.8)
[2024-04-21 10:06] LABS: Blood Urea Nitrogen 23 mg/dl (7-17); Calcium 9.7 mg/dl (8.4-10.2); Carbon Dioxide 22 mmol/L (22-30); Chloride 106 mmol/L (98-107); Glucose 120 mg/dl (70-99); Potassium 4.1 mmol/L (3.5-5.1); Sodium 138 mmol/L (135-145); eGFR > 60.00
== END ==
LOC: HWLAB 08:31
PROVIDERS: ATTENDING PHYSICIAN Internal Medicine
DX: Z09 Encounter for follow-up examination after completed treatment for conditions other than malignant neoplasm (principal); N20.0 Calculus of kidney; N13.30 Unspecified hydronephrosis; Z96.0 Presence of urogenital implants; K21.9 Gastro-esophageal reflux disease without esophagitis; I10 Essential (primary) hypertension
CPT/HCPCS: 36415; 80048; 85025

== ENCOUNTER → 2024-04-29 16:53 | Outpatient (REF) | payer OTHER, SELFPAY | LOC: CLAB 16:53 | PROVIDERS: ATTENDING PHYSICIAN Specialist | DX: R78.81 Bacteremia (principal) | CPT/HCPCS: 87086 ==

== ENCOUNTER 2024-05-22 06:27 | Day surgery (SDC) | payer OTHER, SELFPAY ==
[2024-05-22] VITALS (8 sets, daily range): BP systolic 107–138; BP diastolic 60–74; BMI 28.4
[2024-05-22] MEDS: NORMOSOL-R/PLASMALYTE-A 1000 IV (08:07)
[2024-05-22] MEDS: Pyridium 200 MG PO (08:08)
[2024-05-22] MEDS: ZOFRAN 4 MG IV (10:23)
== END 2024-05-22 11:40 | disposition home or self-care (01) ==
LOC: SDS 06:27
PROVIDERS: ATTENDING PHYSICIAN Specialist
DX: N20.1 Calculus of ureter (principal)
CPT/HCPCS: 52356; 74018; 76000; 82365; C1894; C2617; J1580

== ENCOUNTER → 2024-05-27 14:42 | Outpatient (REF) | payer OTHER, SELFPAY | LOC: WDC 14:42 | PROVIDERS: ATTENDING PHYSICIAN Nurse Practitioner Adult Health | DX: R92.8 Other abnormal and inconclusive findings on diagnostic imaging of breast (principal) | CPT/HCPCS: 77061; 77065 ==

== ENCOUNTER → 2024-09-18 06:21 | Day surgery (SDC) | payer OTHER, SELFPAY | LOC: GI 06:21 | PROVIDERS: ATTENDING PHYSICIAN Internal Medicine Gastroenterology | DX: Z12.11 Encounter for screening for malignant neoplasm of colon (principal); K64.8 Other hemorrhoids; K57.30 Diverticulosis of large intestine without perforation or abscess without bleeding; D12.2 Benign neoplasm of ascending colon; D12.5 Benign neoplasm of sigmoid colon; Z86.0100 Personal history of colon polyps, unspecified | CPT/HCPCS: 45385; 45380; 88305 ==

== ENCOUNTER → 2024-09-25 08:04 | Outpatient (REF) | payer OTHER, SELFPAY ==
[2024-09-25 10:08] LABS: % Basophils 0.5 % (0-2); % Eosinophils 3.4 % (0-6); % Immature Granulocytes 0.3 % (0-0.5); % Lymphocytes 31.2 % (20.5-51.1); % Monocytes 9.8 % (1.7-9.3); % Neutrophils 54.8 % (42.2-75.2); Absolute Eosinophils 0.3 10^3/uL (0-0.7); Absolute Lymphocytes 2.3 10^3/uL (1.2-3.4); Absolute Monocytes 0.7 10^3/uL (0.1-0.6); Mean Corp Hgb Conc. 32.5 g/dL (33.0-37.0); Mean Corpuscular Hgb 28.8 pg (27.0-31.0); Mean Corpuscular Volume 88.7 fL (81.0-99.0); Mean Platelet Volume 9.8 fL (7.4-10.4); Nucleated Red Blood Cells % 0 %; Platelet Count 245 10^3/uL (130-400); Red Blood Cell Count 4.51 10^6/uL (4.20-5.40); Red Cell Dist. Width 12.9 % (11.5-14.5); White Blood Cell Count 7.4 10^3/uL (4.8-10.8)
[2024-09-25 10:09] LABS: Urine Albumin Trace (Neg - Trace); Urine Bilirubin Negative (Negative); Urine Character Clear (Clear); Urine Glucose Negative (Negative); Urine Ketone Negative (Negative); Urine Leukocyte Trace (Negative); Urine Nitrite Negative (Negative); Urine Occult Blood Negative (Negative); Urine Urobilinogen Negative (Neg - 1+)
[2024-09-25 10:21] LABS: Urine Color Yellow
[2024-09-25 10:34] LABS: Urine Mucus Many
[2024-09-25 10:35] LABS: Urine Amorphous Seen; Urine Urothelial Cell 0-2 /LPF (FEW)
[2024-09-25 10:36] LABS: Urine Red Blood Cell 0-2 /HPF (0-2)
[2024-09-25 10:47] LABS: Glycohemoglobin (HgbA1c) 5.8 % (4.0-5.6)
[2024-09-25 10:51] LABS: Vitamin D, 25-OH*** 67.1 ng/mL (30-80)
[2024-09-25 10:58] LABS: ALT (SGPT) 20 U/L (0-35); AST (SGOT) 26 U/L (14-36); Albumin 4.3 g/dl (3.5-5.0); Alkaline Phosphatase 73 U/L (38-126); Blood Urea Nitrogen 23 mg/dl (7-17); Calcium 9.7 mg/dl (8.4-10.2); Carbon Dioxide 30 mmol/L (22-30); Chloride 100 mmol/L (98-107); Glucose 112 mg/dl (70-99); HDL Cholesterol 63 mg/dl; LDL Cholesterol, Calculated 64 mg/dl; Potassium 4.3 mmol/L (3.5-5.1); Sodium 139 mmol/L (135-145); Total Bilirubin 0.6 mg/dl (0.2-1.3); Total Cholesterol 142 mg/dl (50-199); Triglyceride 79 mg/dl (10-149); Very Low Density Lipoprotein 15 mg/dl (0-30); eGFR > 60.00
[2024-09-25 11:04] LABS: TSH Reflex To Free T4 2.25 uIU/ml (0.47-4.68)
[2024-09-25 11:31] LABS: Vitamin B12 820 pg/ml (239-931)
== END ==
LOC: HWLAB 08:04
PROVIDERS: ATTENDING PHYSICIAN Nurse Practitioner Adult Health
DX: I10 Essential (primary) hypertension (principal); E78.00 Pure hypercholesterolemia, unspecified; M81.0 Age-related osteoporosis without current pathological fracture; E53.8 Deficiency of other specified B group vitamins; K76.0 Fatty (change of) liver, not elsewhere classified
CPT/HCPCS: 36415; 80053; 80061; 81003; 81015; 82306; 82607; 83036; 84443; 85025

== ENCOUNTER → 2025-01-19 09:06 | Outpatient (REF) | payer OTHER, SELFPAY | LOC: HWWDC 09:06 | PROVIDERS: ATTENDING PHYSICIAN Nurse Practitioner Adult Health | DX: Z12.31 Encounter for screening mammogram for malignant neoplasm of breast (principal) | CPT/HCPCS: 77063; 77067 ==

== ENCOUNTER → 2025-04-17 07:59 | Outpatient (REF) | payer OTHER, SELFPAY ==
[2025-04-17 10:24] LABS: Glycohemoglobin (HgbA1c) 5.7 % (4.0-5.6)
[2025-04-17 12:37] LABS: ALT (SGPT) 25 U/L (0-35); AST (SGOT) 28 U/L (14-36); Albumin 4.5 g/dl (3.5-5.0); Alkaline Phosphatase 58 U/L (38-126); Blood Urea Nitrogen 23 mg/dl (7-17); Calcium 9.5 mg/dl (8.4-10.2); Carbon Dioxide 29 mmol/L (22-30); Chloride 104 mmol/L (98-107); Glucose 118 mg/dl (70-99); HDL Cholesterol 59 mg/dl; LDL Cholesterol, Calculated 76 mg/dl; Potassium 3.8 mmol/L (3.5-5.1); Sodium 141 mmol/L (135-145); Total Protein 7.0 g/dl (6.3-8.2); Very Low Density Lipoprotein 14 mg/dl (0-30); eGFR > 60.00
== END ==
LOC: HWLAB 07:59
PROVIDERS: ATTENDING PHYSICIAN Specialist; FAMILY PHYSICIAN Nurse Practitioner Adult Health
DX: N20.1 Calculus of ureter (principal); E78.00 Pure hypercholesterolemia, unspecified; R73.09 Other abnormal glucose
CPT/HCPCS: 36415; 74018; 80053; 80061; 83036

== ENCOUNTER → 2025-06-25 09:47 | Outpatient (REF) | payer OTHER, SELFPAY ==
[2025-06-25 11:30] LABS: Hematocrit 40.0 % (37.0-47.0); Hemoglobin 13.6 g/dL (12.0-16.0); Mean Corp Hgb Conc. 34.0 g/dL (33.0-37.0); Mean Corpuscular Volume 90.1 fL (81.0-99.0); Nucleated Red Blood Cells % 0 %; Platelet Count 258 10^3/uL (130-400); Red Cell Dist. Width 11.9 % (11.5-14.5)
[2025-06-25 11:48] LABS: ALT (SGPT) 28 U/L (0-35); AST (SGOT) 29 U/L (14-36); Albumin 4.5 g/dl (3.5-5.0); Alkaline Phosphatase 61 U/L (38-126); Blood Urea Nitrogen 28 mg/dl (7-17); Calcium 9.7 mg/dl (8.4-10.2); Carbon Dioxide 29 mmol/L (22-30); Chloride 104 mmol/L (98-107); Glucose 132 mg/dl (70-99); Iron 125 ug/dl (37-170); Magnesium 1.7 mg/dl (1.6-2.3); Potassium 4.0 mmol/L (3.5-5.1); Sodium 139 mmol/L (135-145); Total Protein 7.2 g/dl (6.3-8.2); eGFR > 60.00
[2025-06-25 11:56] LABS: Glycohemoglobin (HgbA1c) 5.7 % (4.0-5.6)
[2025-06-25 11:57] LABS: Total Iron Binding Capacity 351 ug/dl (265-497)
[2025-06-25 13:50] LABS: Vitamin D, 25-OH*** 79.7 ng/mL (30-80)
[2025-06-25 14:08] LABS: Ferritin 59.9 ng/ml (11.1-264.0)
[2025-06-25 14:40] LABS: Folate 4.9 ng/ml (2.76-20); Vitamin B12 936 pg/ml (239-931)
== END ==
LOC: HWLAB 09:47
PROVIDERS: ATTENDING PHYSICIAN Nurse Practitioner Adult Health
DX: E53.8 Deficiency of other specified B group vitamins (principal); G25.81 Restless legs syndrome; Z79.899 Other long term (current) drug therapy; R73.09 Other abnormal glucose
CPT/HCPCS: 36415; 80053; 82306; 82607; 82728; 82746; 83036; 83540; 83550; 83735; 84443; 85025